=== PATIENT | male | born 1935 | race Caucasian/White ===

== ENCOUNTER → 2016-11-29 | Outpatient (CLI) | payer OTHER, BC ==
[~2016-11-29] MED LIST: ASPI81TA28 PO; ATOR-24 PO; BROM0.07 OPR; CARV25TA PO; CHOL20009 PO; CLOP1TAB15 PO; CPR500 PO; CRG25 PO; CYAN100T6 PO; DIGO0.1219 PO; DIGO0.122 PO; EXLP46 TOP; INSDGI SC; LISI40TA PO; LSN40 PO; MEMA1CAP3 PO; MTR500 PO; PANT40TA PO; PRED1SUS OPR
--- NOTE | 2016-11-29 12:35 | DIAGNOSTIC IMAGING REPORT ---
ULTRASOUND OF THE CAROTID ARTERIES CLINICAL HISTORY: Carotid artery atherosclerosis. COMPARISON STUDY: Carotid artery ultrasound dated 11/29/2015. TECHNIQUE: Real-time, grayscale, and color Doppler sonography of the carotid arteries is performed. Images are reviewed in the transverse and longitudinal planes. FINDINGS: Blood pressure in the right arm measures 129/65 and blood pressure in the left arm measures 131/64. The carotid arteries are patent bilaterally and demonstrate antegrade flow. There is mild to moderate echogenic shadowing atherosclerotic plaque seen bilaterally. Normal doppler arterial waveforms are seen throughout. Velocity measurements are listed below. Common carotid peak systolic velocity (cm/sec): RIGHT: 67 LEFT: 76 ICA proximal peak systolic velocity (cm/sec): RIGHT: 57 LEFT: 85 ICA mid peak systolic velocity (cm/sec): RIGHT: 74 LEFT: 72 ICA distal peak systolic velocity (cm/sec): RIGHT: 82 LEFT: 71 ICA/CC peak systolic ratio: RIGHT: 1.2 LEFT: 1.1 Antegrade flow was shown in the vertebral arteries. The external carotid arteries are patent. Elevated velocities within the left external carotid artery suggests some degree of stenosis. IMPRESSION: 1. Atherosclerotic plaque with no sonographic evidence of hemodynamically significant stenosis in the right or left carotid arterial system. 2. Antegrade flow is shown in the vertebral arteries. 3. Elevated velocities within the left external carotid artery suggests some degree of stenosis. Electronically signed by: Percy Salgado M.D. 11/29/2016 12:33 PM Dictated Date/Time: 11/29/2016 12:08 PM
== END | disposition home or self-care (01) ==
LOC: C.ULTRBC 10:58
PROVIDERS: ATTEND Surgery
DX: I66.29 Occlusion and stenosis of unspecified posterior cerebral artery (principal); I25.10 Atherosclerotic heart disease of native coronary artery without angina pectoris; I65.03 Occlusion and stenosis of bilateral vertebral arteries

== ENCOUNTER → 2016-12-15 | Outpatient (CLI) | payer OTHER, BC ==
[2016-12-15 17:29] LABS: BASO % 0.5 %; BASO ABS # 0.03 K/uL (0-0.2); COMPLETE YES; EOS % 3.4 %; HEMATOCRIT 38.2 % (42-52); IG% 0.2 %; LYMPH % 24.2 %; LYMPH ABS # 1.35 K/uL (1.2-3.4); MEAN CELL VOLUME 85.5 fL (80-100); MEAN CORPUSCULAR HGB CONC 35.1 g/dl (32-36); MEAN PLATELET VOLUME 11.6 fL (7.4-10.4); NEUT % 64.7 %; PLATELET COUNT 177 K/uL (130-400); RED BLOOD COUNT 4.47 M/uL (4.7-6.1); WHITE BLOOD COUNT 5.59 K/uL (4.8-10.8)
[2016-12-15 17:45] LABS: BLOOD UREA NITROGEN 24 mg/dl (7-18); BUN/CREATININE RATIO 17.2 (10-20); CALCIUM 9.1 mg/dl (8.5-10.1); CARBON DIOXIDE 29 mmol/L (21-32); CHLORIDE 102 mmol/L (98-107); GLUCOSE 202 mg/dl (70-99); POTASSIUM 5.2 mmol/L (3.5-5.1); SODIUM 138 mmol/L (136-145)
[2016-12-15 17:58] LABS: CHOLESTEROL 94 mg/dl (0-200); CHOLESTEROL/HDL RATIO 3.2; HDL CHOLESTEROL 29 mg/dl; LDL CHOLESTEROL CALCULATED 25 mg/dl; TRIGLYCERIDES 198 mg/dl (0-150); VERY LOW DENSITY LIPOPROT CALC 40 mg/dl
[2016-12-16 06:35] LABS: ESTIMATED AVERAGE GLUCOSE 169 mg/dl; HA1C FLAG Normal (Normal)
== END | disposition home or self-care (01) ==
LOC: C.LABPBG 12:21
PROVIDERS: ATTEND Internal Medicine Geriatric Medicine
DX: D64.9 Anemia, unspecified (principal); E11.29 Type 2 diabetes mellitus with other diabetic kidney complication; I10 Essential (primary) hypertension; I25.5 Ischemic cardiomyopathy; M19.90 Unspecified osteoarthritis, unspecified site; E55.9 Vitamin D deficiency, unspecified

== ENCOUNTER 2016-12-29 11:42 | Inpatient (IN) | payer OTHER, BC ==
[~2016-12-29] VITALS: Ht 162.6 cm; Wt 62.3 kg
[~2016-12-29 11:42] MED LIST changes: -CARV25TA PO; -CPR500 PO; -DIGO0.1219 PO; -LISI40TA PO; -MTR500 PO
[2016-12-29] MEDS ORDERED: SODIUM CHLORIDE 0.9% 1000ML 1,000 ML IV STA (12:10)
[2016-12-29 12:12] LABS: HEMATOCRIT 40.1 % (42-52); MEAN CORPUSCULAR HEMOGLOBIN 29.9 pg (25-34); MEAN CORPUSCULAR HGB CONC 35.2 g/dl (32-36); MEAN PLATELET VOLUME 11.5 fL (7.4-10.4); PLATELET COUNT 148 K/uL (130-400); RED BLOOD COUNT 4.72 M/uL (4.7-6.1); WHITE BLOOD COUNT 6.98 K/uL (4.8-10.8)
--- NOTE | 2016-12-29 12:14 | EMERGENCY ROOM VISIT NOTE ---
History Report prepared by Oswaldo: Berenice Lynn Under the Supervision of: Dr. Dawson Pelletier M.D. First contact with patient: 11:58 Chief Complaint: DIZZY Stated Complaint: DIZZNESS/ DIAPHORETIC/NECK PAIN Nursing Triage Summary: Pt arrives via ALS litter. Per medic, pt was at a restaurant eating breakfast, "felt ill", went to the restroom and had a BM. When EMS arrived pt was reported to be pale, diaphoretic and leaning to the right. Pt c/o posterior neck pain. EMS reports initial bp was 80/palp. Pt reportedly answering questions per his norm, hx of dementia. History of Present Illness The patient is an 81 year old male who presents to the Emergency Room with complaints of sudden dizziness that overcame him this morning. The patient states that he went with his family to a restaurant and when he went to leave he became dizzy upon standing. He states that he walked a few feet, but felt that he could not go anymore. Per the patient's , the patient had to be carried to the bathroom because he couldn't ambulate on his own. She states that she could feel that the patient was diaphoretic, but the patient states that he felt cold. The patient denies any weakness in any extremity or difficulty speaking. The patient's states that the patient was disoriented and was not speaking during the event. The patient notes a history of a quadruple bypass several years ago and states that he has had several stents placed. 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 The patient reports normal urination and bowel movements. The patient's states that for the last several years he has been taking Digoxin, Plavix, and aspirin daily since his [place]. She denies the patient having any recent changes in his medications. The patient's states that the patient has had a decrease in appetite over the last week, noting that he has not eaten very much recently. Nursing staff notes that the patient received 324 en-route to the emergency department. Source of History: patient, spouse/significant other (), nursing staff Onset: this morning Position: other (global) Quality: other (dizziness) Timing: other (sudden) Modifying Factors (Worsening): other (standing) Associated Symptoms: + diaphoresis, No weakness Note: Associated Symptoms: felt cold, decrease in appetite, disoriented, not speaking Review of Systems 10 systems reviewed and negative. Past Medical & Surgical Medical Problems: (1) Alzheimer's dementia (2) Anemia (3) Aortocoronary bypass status (4) Atherosclerosis (5) Dementia (6) Diabetes mellitus (7) Diverticulosis of colon without hemorrhage (8) Esophageal reflux (9) Hx of prostatic malignancy (10) Hypertension (11) Knee joint replacement status Surgical Problems: (1) S/P cholecystectomy Family History Cancer Diabetes mellitus Gallbladder disease Heart disease Hypertension Social History Smoking Status: Never Smoker Smokeless Tobacco Use: No Alcohol Use: none Marital Status: Housing Status: lives with significant other Occupation Status: retired Current/Historical Medications Scheduled Aspirin (Aspirin Ec), 81 MG PO QAM Atorvastatin (Lipitor), 40 MG PO QPM Carvedilol (Coreg), 25 MG PO BID Clopidogrel (Plavix), 75 MG PO QAM Cyanocobalamin (Vitamin B12 100 Mcg), 100 MCG PO QAM Digoxin (Digox), 125 MCG PO DAILY Insulin Glargine (Lantus), 40 UNITS SC HS Lisinopril (Zestril), 40 MG PO DAILY Memantine Hcl (Namenda Xr), 1 CAP PO HS Pantoprazole (Protonix), 40 MG PO QAM Rivastigmine Tartrate (Exelon), 13.3 MG TOP HS Allergies Coded Allergies: Atenolol (Unverified Allergy, Intermediate, UNKNOWN, 12/29/16) Donepezil (Unverified Allergy, Intermediate, GI UPSET, 12/29/16) Fenofibrate (Unverified Allergy, Intermediate, UNKNOWN, 12/29/16) Hydrochlorothiazide (Unverified Allergy, Intermediate, UNKNOWN, 12/29/16) Indomethacin (Unverified Allergy, Intermediate, UNKNOWN, 12/29/16) Niacin (Unverified Allergy, Intermediate, UNKNOWN, 12/29/16) Latex (Verified Allergy, Mild, Skin Irritation, 12/29/16) Adhesives (Unverified Allergy, Unknown, red sore skin from tape, 12/29/16) NSAIDs (Verified Allergy, Unknown, QUESTIONABLE ALLERGY TO INDOCIN, ) "CAUSES HIM TO BE NERVOUS/SHAKY" Physical Exam Vital Signs Date Time Temp Pulse Resp B/P Pulse Ox O2 Delivery O2 Flow Rate FiO2 2/10/17 14:36 51 16 185/69 100 12/29/16 13:25 54 18 160/68 100 Room Air 12/29/16 12:22 45 113/59 50 115/49 12/29/16 12:14 100 Room Air 12/29/16 12:04 62 12/29/16 11:52 36.5 56 18 147/53 100 Room Air Physical Exam GENERAL: Patient awake, alert, oriented x 3. Patient follows commands. Patient does not appear toxic. Patient is adequately hydrated and well- nourished. SKIN: No erythema, pallor, cyanosis or rash HEENT: Normal head, pupils equal, reactive to light and accommodation. Oral cavity and posterior pharynx appear normal. Neck: Without adenopathy, no neck vein distention. CHEST WALL: Well healed midline sternotomy scar. LUNGS: Clear to auscultation. No wheezes, no rales, no rhonchi. HEART: Bradycardic rhythm. No murmurs. No gallops. No rubs ABDOMEN: No masses, no rebound, no hepatomegaly or splenomegaly. RECTAL: No external hemorrhoids seen. EXTREMITIES: No signs of trauma. No pedal or pretibial edema. No calf or thigh tenderness. NEUROLOGIC: Cranial nerves II-XII within normal limits. No gross motor sensory function deficits. Medical Decision & Procedures ER Provider Diagnostic Interpretation: X ray results are stated below per my interpretation and the radiologist's interpretation. CHEST ONE VIEW PORTABLE CLINICAL HISTORY: near syncope DIZZINESS COMPARISON STUDY: 12/03/2015 FINDINGS: There are postsurgical changes of a midline sternotomy. The cardiac and mediastinal contours remain stable. There is no focal pulmonary consolidation. There is no failure. There are no pleural effusions. There are bilateral calcified pleural plaques. IMPRESSION: Bilateral calcified pleural plaques left greater than right. No active disease in the chest. Electronically signed by: Ivan Dias M.D. 12/29/2016 12:43 PM Dictated Date/Time: 12/29/2016 12:41 PM Laboratory Results 12/29/16 15:04 12/29/16 11:45 Test 12/29/16 11:45 12/29/16 13:26 12/29/16 15:04 Anion Gap 8.0 mmol/L (3-11) Est Creatinine Clear Calc Drug Dose 27.0 ml/min Estimated GFR () 40.0 Estimated GFR (Non- 34.5 BUN/Creatinine Ratio 17.7 (10-20) Calcium Level 9.4 mg/dl (8.5-10.1) Digoxin Level 1.6 ng/ml (0.8-2.0) Bedside Troponin I 0.000 ng/ml (0-0.045) Red Blood Count 4.52 M/uL (4.7-6.1) Mean Corpuscular Volume 85.2 fL (80-100) Mean Corpuscular Hemoglobin 30.1 pg (25-34) Mean Corpuscular Hemoglobin Concent 35.3 g/dl (32-36) RDW Standard Deviation 41.6 fL (36.4-46.3) RDW Coefficient of Variation 13.5 % (11.5-14.5) Mean Platelet Volume 10.9 fL (7.4-10.4) Laboratory results as stated above per my review. Medications Administered Medications (Trade) Dose Ordered Sig/Ashley Route Start Time Stop Time Status Last Admin Dose Admin Sodium Chloride (Nss 1000ml) 1,000 ml @ 500 mls/hr Q2H STAT IV 12/29/16 12:10 12/29/16 14:09 DC 12/29/16 12:21 500 MLS/HR ECG Rate (beats per minute): 48 Rhythm: sinus bradycardia Findings: 1st degree AV block, LBBB, other (Flipped T waves in lead 1, and AVL) ED Course 1159: Past medical records reviewed. The patient was evaluated in room A2. A complete history and physical examination was performed. 1210: Ordered Sodium Chloride 1000 ml @ 500 mls/hr IV. 1334: I reevaluated the patient and he is feeling much better. He is now experiencing diarrhea. 1457: I reevaluated the patient and he is having diarrhea stool and significant amounts of maroon blood. I discussed all the exam findings with him and I discussed the treatment plan. He and his family verbalized complete understanding and agreement. The patient will be evaluated for further treatment. 1515: I discussed the patients case with MALCOLM Carreon. He is going to evaluate the patient for further treatment. Medical Decision I considered multiple diagnoses including myocardial infarction, chest wall pain , pericarditis, myocarditis, aortic emergencies, pulmonary embolism, congestive heart failure, GI causes, digitoxicity, medication reaction, hypovolemia, and other significant cardiopulmonary disorders. Multiple labs, EKG and imaging were obtained. Please see above. The patient had some diarrhea earlier today while here in the ED he had a large amount of blood in his stool. The patient has no hemorrhoids. I believe his GI bleed is the cause for his near syncope earlier today. The patient was given IV fluids. I discussed care with the patient, his multiple family members and the hospitalist. The patient will require further evaluation in the hospital. Consults Time Called: 1500 Consulting Physician: MALCOLM Carreon Returned Call: [phone] I discussed the patients case with MALCOLM Carreon. He is going to evaluate the patient for further treatment. Impression Primary Impression: Rectal bleeding Additional Impressions: Near syncope Diarrhea Hyperkalemia Scribe Attestation The scribe's documentation has been prepared under my direction and personally reviewed by me in its entirety. I confirm that the note above accurately reflects all work, treatment, procedures, and medical decision making performed by me. Departure Information Dispostion Being Evaluated By Hospitalist Referrals Jay Jay Tejada M.D. (PCP) Problem Qualifiers
[2016-12-29 12:23] LABS: BUN/CREATININE RATIO 17.7 (10-20); CALCIUM 9.4 mg/dl (8.5-10.1); CREATININE 1.8 mg/dl (0.60-1.40); POTASSIUM 5.3 mmol/L (3.5-5.1)
--- NOTE | 2016-12-29 12:44 | DIAGNOSTIC IMAGING REPORT ---
CHEST ONE VIEW PORTABLE CLINICAL HISTORY: near syncope DIZZINESS COMPARISON STUDY: 12/03/2015 FINDINGS: There are postsurgical changes of a midline sternotomy. The cardiac and mediastinal contours remain stable. There is no focal pulmonary consolidation. There is no failure. There are no pleural effusions. There are bilateral calcified pleural plaques. IMPRESSION: Bilateral calcified pleural plaques left greater than right. No active disease in the chest. Electronically signed by: Ivan Dias M.D. 12/29/2016 12:43 PM Dictated Date/Time: 12/29/2016 12:41 PM
[2016-12-29] MEDS ORDERED: LISI40TA PO (13:02)
[2016-12-29] MEDS ORDERED: INSDGI SC (13:02)
[2016-12-29] MEDS ORDERED: CARV25TA PO (13:02)
[2016-12-29] MEDS ORDERED: DIGO0.1219 PO (13:02)
[2016-12-29 15:16] LABS: HEMATOCRIT 38.5 % (42-52); MEAN CELL VOLUME 85.2 fL (80-100); MEAN CORPUSCULAR HEMOGLOBIN 30.1 pg (25-34); MEAN CORPUSCULAR HGB CONC 35.3 g/dl (32-36); MEAN PLATELET VOLUME 10.9 fL (7.4-10.4); PLATELET COUNT 135 K/uL (130-400); RED BLOOD COUNT 4.52 M/uL (4.7-6.1); WHITE BLOOD COUNT 9.35 K/uL (4.8-10.8)
[2016-12-29] MEDS ORDERED: INSULIN ASPART 100 UNITS/ML 3 ML PEN SC SCH (16:00)
[2016-12-29] MEDS ORDERED: HydrALAZINE HCL 20 MG/ML VIAL IV. PRN (16:00)
[2016-12-29] MEDS ORDERED: ONDANSETRON INJ 2 MG/ML 2 ML VIAL IV PRN (16:00)
[2016-12-29] MEDS ORDERED: DEXTROSE 50% 50 ML SYR IV PRN (16:45)
[2016-12-29] MEDS ORDERED: GLUCOSE 40% GEL 15 GM TUBE PO PRN (16:45)
[2016-12-29] MEDS ORDERED: GLUCOSE 10 TABS/TUBE PO PRN (16:45)
[2016-12-29] MEDS ORDERED: GLUCAGON FOR INJ 1 MG VIAL SQ PRN (16:45)
--- NOTE | 2016-12-29 18:31 | HISTORY & PHYSICAL EXAMINATION ---
DATE OF ADMISSION: 12/29/2016 CHIEF COMPLAINT: Dizziness. HISTORY OF PRESENT ILLNESS: An 81-year-old male who presents to Emergency Room with dizziness that started this morning. The patient states that he went to the restaurant and then when he was leaving, he became dizzy upon standing. He stated he walked few feet and he could not walk anymore. Per patient's who is present at bedside, mentioned that he had to be carried to the bathroom because he could not ambulate on his own. Also stated that he looked like he was diaphoretic. The patient denies any weakness in his extremities, difficulty speaking. The patient's also mentioned that he was disoriented. The patient's mentioned that he had decrease in his appetite over the last week and he has not eaten very much. So nursing staff also reported patient received 324 mg of aspirin en route to the Emergency Room. ER physician reported to me that he just had jack blood in his stool and patient has history of no hemorrhoids. REVIEW OF SYSTEMS: Negative except as above. Ten out of 14 systems were reviewed. PAST MEDICAL HISTORY: Significant for Alzheimer dementia, anemia, aortocoronary bypass surgery, quadruple bypass back in 2000, atherosclerosis, dementia, diabetes mellitus type 2, diverticulosis, esophageal reflux, history of prostatic malignancy, hypertension, knee joint replacement, status post cholecystectomy. FAMILY HISTORY: Cancer, diabetes, gallbladder disease, heart disease, hypertension. SOCIAL HISTORY: Does not smoke, does not drink, , lives with significant other, retired. ALLERGIES: HE IS ALLERGIC TO ADHESIVES, ATENOLOL, DONEPEZIL, FENOFIBRATE, HYDROCHLOROTHIAZIDE, INDOMETHACIN, LATEX, NSAID'S, NIACIN. CURRENT MEDICATIONS: Aspirin 81 mg p.o. daily, atorvastatin 40 mg p.o. at bedtime, carvedilol 25 mg p.o. b.i.d., Plavix 75 mg p.o. daily, cyanocobalamin 100 mcg p.o. daily, digoxin 125 mcg p.o. daily, insulin glargine 40 units subcutaneously daily, lisinopril 40 mg p.o. daily, memantine 1 capsule p.o. at bedtime, pantoprazole 40 mg p.o. daily, rivastigmine 13.3 mg topical at bedtime. PHYSICAL EXAMINATION: VITAL SIGNS: Temperature 36.5, pulse 51, respirations 16, blood pressure 185/69, 100% on room air. GENERAL: Not in acute distress. HEENT: Normocephalic, atraumatic. PERRLA, EOMI. Mouth moist, no lesions. NECK: No JVD. Trachea midline. Thyroid is not enlarged. LUNGS: Clear to auscultation bilateral. No wheezes, no rhonchi. HEART: Bradycardia. No murmurs, no gallops. ABDOMEN: Soft, nontender, nondistended. Bowel sounds present bilateral. CHEST WALL: A well-healed midline sternotomy scar. RECTAL: Was performed by ER physician, showed no external hemorrhoids. EXTREMITIES: No clubbing, cyanosis, edema. NEUROLOGICAL: Alert, oriented x3. Cranial nerves II-XII are intact. Motor sensory normal. Deep tendon reflexes 2+ bilateral. DIAGNOSTIC INTERPRETATION: Chest x-ray: Bilateral calcified pleural plaques, left greater than right. No active disease in the chest. LABS: White count of 9.3, hemoglobin of 13.6, platelets 135. Sodium 137, potassium 5.3, chloride 102, CO2 27, BUN of 32, creatinine 1.8, glucose of 274. Digoxin level 1.6, calcium 9.4. Troponin 0.0. EK beats per minute, sinus bradycardia, first degree AV block, left bundle branch block that is unchanged and flipped T waves in leads I and aVL. ASSESSMENT AND PLAN: This is an 81-year-old male who comes in with dizziness and lower gastrointestinal bleed. 1. Lower gastrointestinal bleed. Differential diagnosis would include arteriovenous malformation, cancer, diverticulosis, and no hemorrhoids on exam. Admit patient to general medical floor, H&H every 6-8 hours. Start patient on pantoprazole IV b.i.d. and hold aspirin and Plavix. Consult GI. Keep patient n.p.o. except meds. 2. Uncontrolled hypertension. We will continue on outpatient carvedilol and add hydralazine as needed for systolic blood pressure above 150 mmhg. We are holding lisinopril because of acute renal failure. 3. Acute renal failure with baseline creatinine of 1.3 and currently with creatinine 1.8 in the setting of potassium 5.3, likely related to dehydration. Start patient on normal saline 80 mL per hour and monitor creatinine. Hold lisinopril. 4. History of type 2 diabetes, on insulin. Check hemoglobin A1c. Since patient is on 40 units of Lantus and is going to be n.p.o., we will decrease it to 20 units at bedtime. We will start insulin sliding scale and Accu-Cheks a.c. plus at bedtime. 5. History of cardiac arrhythmia and quadruple coronary bypass surgery. We will hold aspirin, Plavix. We will continue digoxin, carvedilol and Lipitor. 6. Alzheimer dementia. Restart Namenda and Exelon when patient can take oral medicines. 7. Deep venous thrombosis prophylaxis with SCDs. The patient is a full code. Time spent on doing this admission is 50 minutes. ROBERT
[2016-12-29] MEDS: SODIUM CHLORIDE 0.9% 1000ML 1,000 ML IV SCH (19:31)
[2016-12-29] MEDS ORDERED: NURSING VERBAL MED ORDER ONE ×2 (20:00→20:15)
[2016-12-29] MEDS: INSULIN GLARGINE SOLOSTAR 100 UNITS/ML 3 ML PEN SC SCH (21:00)
[2016-12-29] MEDS ORDERED: INSULIN GLARGINE SOLOSTAR 100 UNITS/ML 3 ML PEN SC SCH (21:00)
[2016-12-29] MEDS: RIVASTIGMINE REMOVE SCH (21:39)
[2016-12-29] MEDS: PANTOprazole INJ 40 MG in SYRINGE 0 ML IV SCH (21:39)
[2016-12-29] MEDS: MEMANTINE HCL 14 MG PO SCH (21:39)
[2016-12-29] MEDS: RIVASTIGMINE 13.3 MG PATCH TD SCH (21:40)
[2016-12-29] MEDS: ATORVASTATIN 40 MG TAB PO SCH (21:41)
[2016-12-29] MEDS: CARVEDILOL 25 MG TAB PO SCH (21:42)
[2016-12-29 22:09] LABS: HEMATOCRIT 38.6 % (42-52)
[2016-12-29 23:32] VITALS: BP_SYST 158; BP_SYST 160; BP_DIAS 56; BP_DIAS 81; PULSE 54; PULSE 55; TEMP 36.5; TEMP 37; O2SAT 97; Ht 162.6 cm; Wt 62.3 kg
[2016-12-29] MEDS: INSULIN ASPART 100 UNITS/ML 3 ML PEN SC SCH (23:59)
[2016-12-30] VITALS (9 sets, daily range): BP systolic 122–154; BP diastolic 66–78; PULSE 51–62; TEMP 36.8–37.1; O2SAT 96–98
[2016-12-30] MEDS: SODIUM CHLORIDE 0.9% 1000ML 1,000 ML IV SCH ×2 (05:20→17:55)
[2016-12-30] MEDS: INSULIN ASPART 100 UNITS/ML 3 ML PEN SC SCH ×4 (05:28→21:38)
[2016-12-30 06:31] LABS: ESTIMATED AVERAGE GLUCOSE 171 mg/dl; HA1C FLAG Normal (Normal)
[2016-12-30 08:05] LABS: BASO % 0.2 %; BASO ABS # 0.02 K/uL (0-0.2); COMPLETE YES; EOS % 1.8 %; HEMATOCRIT 36.8 % (42-52); IG% 0.2 %; LYMPH % 16.9 %; LYMPH ABS # 1.54 K/uL (1.2-3.4); MEAN CELL VOLUME 84.8 fL (80-100); MEAN CORPUSCULAR HEMOGLOBIN 29.7 pg (25-34); MEAN CORPUSCULAR HGB CONC 35.1 g/dl (32-36); MEAN PLATELET VOLUME 11.1 fL (7.4-10.4); NEUT % 74.9 %; PLATELET COUNT 147 K/uL (130-400); RED BLOOD COUNT 4.34 M/uL (4.7-6.1); WHITE BLOOD COUNT 9.11 K/uL (4.8-10.8)
--- NOTE | 2016-12-30 08:24 | Progress Note ---
Subjective Date of Service: Dec 30, 2016. Subjective pt did have what sounds like a vagal event at the onset, still with bloody bowel movements, GI medicine has ordered CT scan and is considering Colonoscopy , no further recurrences of syncope issues Problem List Medical Problems: (1) Diarrhea Status: Acute (2) Hyperkalemia Status: Acute (3) Near syncope Status: Acute (4) Rectal bleeding Status: Acute Review of Systems Constitutional: No chills, No fever Respiratory: No cough, No wheezing Cardiac: No chest pain, No edema Abdomen: + GI bleeding, No nausea, No pain, No vomiting Male : No dysuria, No urinary frequency Psychiatric: No anhedonism, No depression symptoms Objective Vital Signs Date Time Temp Pulse Resp B/P Pulse Ox O2 Delivery O2 Flow Rate FiO2 12/30/16 07:45 36.9 62 16 122/66 97 Room Air 12/30/16 07:20 97 Room Air 12/30/16 07:11 36.8 56 18 147/75 97 Room Air 12/30/16 00:00 Room Air 12/29/16 23:32 36.5 55 18 160/81 97 Room Air 12/29/16 23:32 37.0 54 18 158/56 97 Room Air 12/29/16 18:43 53 17 193/81 99 12/29/16 18:15 53 17 193/81 99 Room Air 12/29/16 17:44 48 18 176/83 99 Room Air 12/29/16 17:23 51 18 198/84 98 Room Air 12/29/16 14:36 51 16 185/69 100 12/29/16 13:25 54 18 160/68 100 Room Air 12/29/16 12:22 45 113/59 50 115/49 12/29/16 12:14 100 Room Air 12/29/16 12:04 62 12/29/16 11:52 36.5 56 18 147/53 100 Room Air Physical Exam General Appearance: WD/WN, + mild distress Neck: supple, no JVD Respiratory/Chest: chest non-tender, lungs clear, no accessory muscle use Cardiovascular: regular rate, rhythm, no edema, + systolic murmur Abdomen: normal bowel sounds, soft, + tenderness (diffusely) Neurologic/Psychiatric: alert, oriented x 3 Laboratory Results Last 24 Hours Test 12/29/16 11:45 12/29/16 13:26 12/29/16 15:04 12/29/16 21:30 White Blood Count 6.98 K/uL 9.35 K/uL Red Blood Count 4.72 M/uL 4.52 M/uL Hemoglobin 14.1 g/dL 13.6 g/dL 13.7 g/dL Hematocrit 40.1 % 38.5 % 38.6 % Mean Corpuscular Volume 85.0 fL 85.2 fL Mean Corpuscular Hemoglobin 29.9 pg 30.1 pg Mean Corpuscular Hemoglobin Concent 35.2 g/dl 35.3 g/dl RDW Standard Deviation 41.6 fL 41.6 fL RDW Coefficient of Variation 13.6 % 13.5 % Platelet Count 148 K/uL 135 K/uL Mean Platelet Volume 11.5 fL 10.9 fL Sodium Level 137 mmol/L Potassium Level 5.3 mmol/L Chloride Level 102 mmol/L Carbon Dioxide Level 27 mmol/L Anion Gap 8.0 mmol/L Blood Urea Nitrogen 32 mg/dl Creatinine 1.80 mg/dl Est Creatinine Clear Calc Drug Dose 27.0 ml/min Estimated GFR () 40.0 Estimated GFR (Non- 34.5 BUN/Creatinine Ratio 17.7 Random Glucose 274 mg/dl Calcium Level 9.4 mg/dl Digoxin Level 1.6 ng/ml Bedside Troponin I 0.000 ng/ml Estimated Average Glucose 171 mg/dl Hemoglobin A1c 7.6 % Test 12/29/16 23:43 12/30/16 07:35 Bedside Glucose 160 mg/dl White Blood Count 9.11 K/uL Red Blood Count 4.34 M/uL Hemoglobin 12.9 g/dL Hematocrit 36.8 % Mean Corpuscular Volume 84.8 fL Mean Corpuscular Hemoglobin 29.7 pg Mean Corpuscular Hemoglobin Concent 35.1 g/dl Platelet Count 147 K/uL Mean Platelet Volume 11.1 fL Neutrophils (%) (Auto) 74.9 % Lymphocytes (%) (Auto) 16.9 % Monocytes (%) (Auto) 6.0 % Eosinophils (%) (Auto) 1.8 % Basophils (%) (Auto) 0.2 % Neutrophils # (Auto) 6.82 K/uL Lymphocytes # (Auto) 1.54 K/uL Monocytes # (Auto) 0.55 K/uL Eosinophils # (Auto) 0.16 K/uL Basophils # (Auto) 0.02 K/uL RDW Standard Deviation 41.1 fL RDW Coefficient of Variation 13.4 % Immature Granulocyte % (Auto) 0.2 % Immature Granulocyte # (Auto) 0.02 K/uL Assessment and Plan 81-M with lower gastrointestinal bleed, and dizziness Lower gastrointestinal bleed. Serial HGB pantoprazole IV b.i.d. and hold aspirin and Plavix. Consult GI is considering colonoscopy. CT with left sided colitis, will check cultures Uncontrolled hypertension. carvedilol and prn hydralazine held lisinopril due to acute renal failure. Acute renal failure hydration and monitor . Type 2 diabetes, on insulin. 1/2 dose typical lantus and use insulin sliding scale CAD Aib, hold aspirin, Plavix. Continue digoxin, due to bradycardia, reduce carvedilol dose Alzheimer dementia. restart Namenda and Exelon Deep venous thrombosis prophylaxis with SCDs. The patient is a full code.
[2016-12-30] MEDS ORDERED: LISINOPRIL 40 MG TAB PO SCH (09:00)
[2016-12-30 09:07] LABS: CREATININE 1.3 mg/dl (0.60-1.40)
[2016-12-30 09:08] LABS: BUN/CREATININE RATIO 20.8 (10-20); CALCIUM 8.6 mg/dl (8.5-10.1); POTASSIUM 3.9 mmol/L (3.5-5.1)
[2016-12-30] MEDS: PANTOprazole INJ 40 MG in SYRINGE 0 ML IV SCH ×2 (09:45→21:34)
[2016-12-30] MEDS: CARVEDILOL 25 MG TAB PO SCH (09:46)
[2016-12-30] MEDS: CYANOCOBALAMIN 100 MCG TAB (VIT B-12) PO SCH (09:46)
[2016-12-30] MEDS ORDERED: OPTIRAY 320 IV PRN (12:15)
--- NOTE | 2016-12-30 14:00 | GASTROINTESTINAL CONSULTATION ---
DATE OF CONSULTATION: 12/30/2016 AGE: 81. SEX: Male. RACE: . ATTENDING PHYSICIAN: Dr. Lombardi. CONSULTING PHYSICIAN: Dr. Burns. REASON FOR CONSULTATION: Bright red blood per rectum. HISTORY OF PRESENT ILLNESS: Micheal Astudillo is an 81-year-old male, who presented to the Department of Emergency Medicine on 12/29/2016 with dizziness. He was at a breakfast and became lightheaded, dizzy and had an episode of diarrhea, which was noted to have blood in it. He does have a history of coronary artery disease and is on aspirin and Plavix therapy at home. Upon arrival to the Department of Emergency Medicine, he was noted to have an H\T\H of 14.1 and 40.1 and a BUN of 32 with a creatinine of 1.8. He has undergone an upper endoscopy as well as a colonoscopy as recently as 05/28/[address] Gannon. His EGD was unremarkable. His colonoscopy did show diverticulosis, but no other significant findings were noted. He states that over the past year to year and a half he has lost approximately 20 pounds, but states that he has not had persistent bright red rectal bleeding and states that this is a new symptom for him. He was admitted and was treated with IV fluids. A repeat hemoglobin was noted to decrease to 12.9. He has had 2 bowel movements this morning, which were soft and liquid in nature, semisolid and he did note blood in his stool. He denies any abdominal pain, fevers, chills, nausea, vomiting, hematemesis or melena. He further denies any rectal pain and has no further complaints. PAST MEDICAL HISTORY: Significant for coronary artery disease, anemia, Alzheimer's dementia, type 2 diabetes mellitus, diverticulosis, GERD, history of prostate cancer, hypertension. PAST SURGICAL HISTORY: Includes bilateral total knee replacement, cholecystectomy, coronary artery bypass grafting. ALLERGIES: ADHESIVES, ATENOLOL, DONEPEZIL, FENOFIBRATE, HYDROCHLOROTHIAZIDE, INDOMETHACIN, LATEX, NSAIDS, NIACIN. MEDICATIONS AT PRESENT: Digoxin 0.125 mg p.o. daily, vitamin B12 100 mcg p.o. q.a.m., sliding scale insulin, Lipitor 40 mg p.o. q.p.m., carvedilol 25 mg p.o. b.i.d., Protonix 40 mg IV b.i.d., Lantus 8 units subQ at bedtime, Zofran 4 mg IV q. 6 p.r.n. nausea and hydralazine 10 mg IV q. 6 p.r.n. for systolic blood pressures greater than 150. SOCIAL HISTORY: He is accompanied by his . He denies any tobacco, alcohol or illicit drug use. FAMILY HISTORY: Negative for GI malignancy or inflammatory bowel disease. REVIEW OF SYSTEMS: Negative x10 system review other than pertinent positives listed in the HPI. PHYSICAL EXAMINATION: VITAL SIGNS: Include a temp of 36.9, pulse 62, respirations 16, blood pressure 145/66, pulse ox 97% on room air. GENERAL: He is awake, cooperative, in no acute distress. HEAD: Normocephalic, atraumatic. EYES: Pupils equally round. Extraocular muscles are intact. ENT: External evaluation of ears and nose are normal. Oropharynx is clear. NECK: Soft and supple. There is no JVD or lymphadenopathy. CHEST: Clear to auscultation bilaterally. CARDIOVASCULAR SYSTEM: Regular rate and rhythm. ABDOMEN: Soft, nontender, nondistended. Positive bowel sounds. There is no hepatosplenomegaly or stigmata of chronic liver disease. EXTREMITIES: No clubbing, cyanosis, or edema. LABORATORY STUDIES: From today include a hemoglobin of 12.9, hematocrit 36.8, platelet count of 147. A white blood cell count of 9.11, a sodium of 140, potassium 3.9, chloride 106, bicarbonate 25, BUN 27, creatinine 1.3 and a blood glucose level of 158. Chest x-ray in the ER showed bilateral calcified pleural plaques, left greater than right, but no active disease in the chest. IMPRESSION: An 81-year-old male with acute blood loss anemia with rectal bleeding. PLAN: Differential diagnosis in this patient with painless bright red blood per rectum includes diverticular bleeding versus hemorrhoids versus AVM versus colon cancer, which is less likely versus brisk upper GI bleed, which again is less likely. His plan at present would be to continue him on Protonix 40 mg IV b.i.d. I would recommend checking a CT scan of his abdomen and pelvis as ischemic colitis can present in this way as well though usually with abdominal pain though his history of vascular disease would increase his risk for this. I would recommend treating him supportively. I would transfuse him to maintain his H\T\H around 10 and 30 and I will make further recommendations in regards to endoscopic workup in the coming days. I will follow his clinical course and make further recommendations.
--- NOTE | 2016-12-30 14:47 | DIAGNOSTIC IMAGING REPORT ---
CT SCAN OF THE ABDOMEN AND PELVIS WITH IV CONTRAST CLINICAL HISTORY: Rectal bleeding. Anemia. COMPARISON STUDY: Abdominal CT dated 10/19/2006. TECHNIQUE: Following the IV administration of 115 cc of Optiray 320, CT scan of the abdomen and pelvis is performed from the lung bases to the proximal femora. Images are reviewed in the axial, sagittal, and coronal planes. IV contrast was administered without complication. Automated dose control exposure was utilized. CT DOSE: 265.36 mGy.cm FINDINGS: Lung bases: The patient is status post midline sternotomy. The heart is enlarged and without pericardial effusion. There are coronary artery calcifications. Calcified pleural plaque is present at the right lung base. No airspace consolidation or pleural effusion is identified. Liver: The contrast-enhanced liver is normal in size, contour, and attenuation. There is no intrahepatic biliary ductal dilatation. The hepatic veins and portal veins are patent. Gallbladder: Surgically absent noting clips in the gallbladder fossa. Spleen: Normal in size and attenuation. Pancreas: Moderately atrophic and grossly unremarkable. Adrenal glands: Unremarkable. Kidneys: The contrast enhanced kidneys are atrophic and without hydronephrosis. The kidneys enhance symmetrically. Abdominal vasculature: There is advanced atherosclerotic calcification and ectasia of the abdominal aorta. Bowel: The small bowel and colon are normal in course and caliber. There is a long segment of wall thickening and edema identified involving the left colon. This extends in the distal descending colon to the rectum. There is associated pericolonic infiltration. The appearance is typical for colitis. There is advanced sigmoid diverticulosis without clear as evidence of acute sigmoid diverticulitis. The appendix is well-visualized and normal. Peritoneum: There is a small volume of free fluid in the pelvis. No intraperitoneal free air is seen. There is a small fat-containing umbilical hernia. Lymphadenopathy: None. Pelvic viscera: Brachytherapy seeds are noted in the prostate gland. The bladder wall is thickened and trabeculated, likely representing the sequelae of chronic outlet obstruction. Skeletal structures: The skeletal structures are osteopenic. There are bilateral pars defects at L5 with grade 1 anterolisthesis at L5-S1. There is moderate lumbosacral spondylosis. No lytic or blastic lesions are seen. IMPRESSION: 1. Findings are consistent with a nonspecific colitis of the left colon. This could be on an infectious, inflammatory, or ischemic basis. Clinical correlation will be required. 2. There is advanced sigmoid diverticulosis without clear CT evidence of acute diverticulitis. 3. There is a small volume of free fluid in the pelvis, likely on a reactive basis. 4. Brachytherapy seeds are noted in the prostate gland. 5. The appearance of the bladder suggests the sequelae of chronic outlet obstruction. 6. Cardiomegaly. 7. Additional changes as above. Electronically signed by: Percy Salgado M.D. 12/30/2016 2:46 PM Dictated Date/Time: 12/30/2016 2:40 PM
[2016-12-30] MEDS: DIGOXIN 0.125 MG TAB PO SCH ×2 (16:00→18:23)
[2016-12-30] MEDS: RIVASTIGMINE REMOVE SCH (20:59)
[2016-12-30] MEDS: INSULIN GLARGINE SOLOSTAR 100 UNITS/ML 3 ML PEN SC SCH (21:00)
[2016-12-30] MEDS: CARVEDILOL 12.5 MG TAB PO SCH (21:00)
[2016-12-30] MEDS: ATORVASTATIN 40 MG TAB PO SCH (21:35)
[2016-12-30] MEDS: MEMANTINE HCL 14 MG PO SCH (21:36)
[2016-12-30] MEDS: RIVASTIGMINE 13.3 MG PATCH TD SCH (21:37)
[2016-12-31] MEDS ORDERED: NURSING DECISION MEDICATION ORDER SCH
[2016-12-31 02:24] VITALS: BP 148/61; PULSE 76
[2016-12-31] MEDS: SODIUM CHLORIDE 0.9% 1000ML 1,000 ML IV SCH (05:25)
[2016-12-31] MEDS: INSULIN ASPART 100 UNITS/ML 3 ML PEN SC SCH ×2 (06:30→11:58)
[2016-12-31 07:15] VITALS: O2SAT 98
[2016-12-31 08:22] VITALS: BP 153/57; PULSE 63; TEMP 36.8; O2SAT 96
[2016-12-31] MEDS: PANTOprazole INJ 40 MG in SYRINGE 0 ML IV SCH (08:48)
[2016-12-31] MEDS: CARVEDILOL 12.5 MG TAB PO SCH (08:48)
[2016-12-31 09:24] LABS: HEMATOCRIT 32.6 % (42-52); MEAN CORPUSCULAR HEMOGLOBIN 29.8 pg (25-34); MEAN CORPUSCULAR HGB CONC 35.9 g/dl (32-36); MEAN PLATELET VOLUME 10.9 fL (7.4-10.4); PLATELET COUNT 124 K/uL (130-400); RED BLOOD COUNT 3.93 M/uL (4.7-6.1); WHITE BLOOD COUNT 7.55 K/uL (4.8-10.8)
[2016-12-31] MEDS: CYANOCOBALAMIN 100 MCG TAB (VIT B-12) PO SCH (11:15)
--- NOTE | 2016-12-31 13:47 | PROGRESS NOTE ---
DATE: 12/31/2016 GASTROENTEROLOGY PROGRESS NOTE RACE: . SUBJECTIVE: I had the pleasure of seeing Micheal russ at his bedside today. He feels much improved. He has not had any ____
--- NOTE | 2016-12-31 13:53 | PROGRESS NOTE ---
DATE: 12/31/2016 GASTROENTEROLOGY PROGRESS NOTE RACE: . SUBJECTIVE: I had the pleasure of seeing Micheal Astudillo at his bedside today. He states that he is feeling much improved from yesterday. He states he has not had any bowel movements since early yesterday morning and has not had any hematemesis nor hematochezia. He denies any abdominal pain at present. He further denies any fevers, chills, nausea or vomiting and states that he has been tolerating p.o. intake. He denies any further complaints. PHYSICAL EXAMINATION: VITAL SIGNS: Includes temperature 36.8, pulse 63, respirations 18, blood pressure 153/57, pulse ox is 96% on room air. GENERAL: He is awake, cooperative in no acute distress. ABDOMEN: Soft, nontender, nondistended. Positive bowel sounds. There is no hepatosplenomegaly or stigmata of chronic liver disease. LABORATORY STUDIES: From today include a white blood cell count of 7.55, hemoglobin 11.7, platelet count 124. IMAGING DATA: His CT scan of the abdomen and pelvis yesterday showed nonspecific colitis of the left colon which could be on an infectious, inflammatory or ischemic basis. There was advanced sigmoid diverticulosis without CT evidence of acute diverticulitis. A small amount of free fluid in the pelvis, which was felt to be reactive. He does have brachytherapy seeds noted in the prostate gland and questionable chronic outlet obstruction of the bladder. IMPRESSION AND PLAN: This is an 81-year-old male who presented with acute blood loss anemia and rectal bleeding. The differential diagnosis in this patient's case remains ischemic versus infectious versus diverticular versus hemorrhoids versus AVM versus colon cancer versus radiation proctitis. At this time, I would recommend that the patient receive a 10-day course of Cipro and Flagyl therapy to prevent bacterial translocation across the GI mucosa which could result in a secondary infection and we will treat him for his ischemic colitis secondary to his history of heart disease as well as his history of what sounds like a vagal event. I did discuss this case in detail with Dr. Cisse of the hospitalist service who will plan on doing a colonoscopy in 6 weeks as an outpatient and will make further recommendations as needed. If he has any further problems or worsening symptoms, he was advised to contact our office immediately or present to the Department of Emergency Medicine. ROBERT
--- NOTE | 2016-12-31 14:31 | Progress Note ---
Subjective Date of Service: Dec 31, 2016. Subjective pt feels much better, is eager to eat, no further vagal episodes Problem List Medical Problems: (1) Diarrhea Status: Acute (2) Hyperkalemia Status: Acute (3) Near syncope Status: Acute (4) Rectal bleeding Status: Acute Review of Systems Constitutional: No chills, No fever, No weakness Respiratory: No cough, No shortness of breath Cardiac: No chest pain, No edema Abdomen: + problem reported (no further bloody bowel movements), No diarrhea, No nausea, No pain, No vomiting Musculoskeletal: No joint pain, No muscle pain Male : No dysuria, No urinary frequency Objective Vital Signs Date Time Temp Pulse Resp B/P Pulse Ox O2 Delivery O2 Flow Rate FiO2 12/31/16 08:22 36.8 63 18 153/57 96 Room Air 12/31/16 07:15 98 Room Air 12/31/16 02:24 76 148/61 12/31/16 00:00 Room Air 12/30/16 23:01 37.1 51 16 154/68 96 Room Air 12/30/16 18:23 57 12/30/16 16:33 98 Room Air 12/30/16 16:00 54 12/30/16 15:00 36.9 52 16 138/78 98 Room Air Physical Exam General Appearance: WD/WN, no apparent distress Neck: supple, no JVD Respiratory/Chest: chest non-tender, lungs clear, normal breath sounds Cardiovascular: regular rate, rhythm, no murmur Abdomen: normal bowel sounds, non tender, soft Extremities: no pedal edema, no calf tenderness Laboratory Results Last 24 Hours Test 12/30/16 17:44 12/30/16 20:34 12/31/16 05:32 12/31/16 07:56 Bedside Glucose 153 mg/dl 176 mg/dl 163 mg/dl White Blood Count 7.55 K/uL Red Blood Count 3.93 M/uL Hemoglobin 11.7 g/dL Hematocrit 32.6 % Mean Corpuscular Volume 83.0 fL Mean Corpuscular Hemoglobin 29.8 pg Mean Corpuscular Hemoglobin Concent 35.9 g/dl RDW Standard Deviation 40.3 fL RDW Coefficient of Variation 13.3 % Platelet Count 124 K/uL Mean Platelet Volume 10.9 fL Digoxin Level 0.9 ng/ml Test 12/31/16 11:38 Bedside Glucose 191 mg/dl Assessment and Plan 81-M with lower gastrointestinal bleed, and dizziness, may have been vagal episode and then some colonic ischemia or vica versa Lower gastrointestinal bleed. Serial HGB shows 2 gm drop with hydration hold aspirin and Plavix resume in one week Consult GI is considering colonoscopy as outpt in [address] with left sided colitis, pending stool cultures hypertension. carvedilol and prn hydralazine; held lisinopril due to acute renal failure. CAD Aib, hold aspirin, Plavix. Continue digoxin, due to bradycardia, reduce carvedilol dose Acute renal failure hydration and returned to baseline . Type 2 diabetes, on insulin. 1/2 dose typical lantus and use insulin sliding scale Alzheimer dementia. restart Namenda and Exelon Deep venous thrombosis prophylaxis with SCDs. The patient is a full code.
[2016-12-31] MEDS ORDERED: CIPROFLOXACIN 500 MG TAB PO SCH (15:00)
[2016-12-31] MEDS ORDERED: METRONIDAZOLE 500 MG TAB PO SCH (15:00)
[2016-12-31 15:28] VITALS: BP 133/68; PULSE 50; TEMP 36.9; O2SAT 96
[2016-12-31] MEDS ORDERED: CPR500 PO (15:55)
[2016-12-31] MEDS ORDERED: MTR500 PO (15:55)
[2016-12-31 15:59] VITALS: BP 133/68; PULSE 50; TEMP 36.9; O2SAT 96
--- NOTE | 2016-12-31 16:00 | Discharge Instructions ---
Discharge Instructions Admission Reason for Admission: Gi Bleeding Discharge Discharge Diagnosis / Problem: colitis Discharge Goals Goal(s): Diagnostic testing, Therapeutic intervention Activity Recommendations Activity Limitations: resume your previous activity . Instructions / Follow-Up Instructions / Follow-Up Please hold your asprin and plavix for additional 5 days to allow your bowels bleeding to stop Please take 1/2 of your Coreg (carvedilol) dose until you follow up with your primary care this week or you blood pressure goes up Please see your family doctor early in this week for further monitoring of your medications. Current Hospital Diet Patient's current hospital diet: Diabetes Type 2 Diet Discharge Diet Recommended Diet: Low Sodium Diet (2gm Na), Diabetes Type 2 Diet Pending Studies Studies pending at discharge: yes List of pending studies: final stool cultures Laboratory Results Hemoglobin A1c Test 12/29/16 15:04 Range/Units Estimated Average Glucose 171 mg/dl Hemoglobin A1c 7.6 H 4.5-5.6 % Lipid Panel Test 12/15/16 12:30 Range/Units Triglycerides Level 198 H 0-150 mg/dl Cholesterol Level 94 0-200 mg/dl HDL Cholesterol 29 mg/dl Cholesterol/HDL Ratio 3.2 LDL Cholesterol, Calculated 25 mg/dl Medical Emergencies . Who to Call and When: Medical Emergencies: If at any time you feel your situation is an emergency, please call 911 immediately. . Non-Emergent Contact Non-Emergency issues call your: Primary Care Provider, Fishing Boat Captain Call Non-Emergent contact if: temperature is above 101, your pain is unusual for you . . "Provider Documentation" section prepared by Anthony Cisse. VTE Core Measure Inpt VTE Proph given/why not?: Contraindicated
--- NOTE | 2016-12-31 16:03 | Discharge Summary ---
Discharge Summary Admission Date: Dec 29, 2016 at 15:50 Discharge Date: Dec 31, 2016 Discharge Disposition: Home Principal Diagnosis: colitis with bleeding Immunizations: Have You Had Influenza Vaccine: N/A History of Tetanus Vaccine?: Yes History of Pneumococcal: Yes History of Hepatitis B Vaccine: No Procedures: CT abdomen and pelvis with signs of colonic irritation Consultations: Dr Burns Medication Reconciliation New Medications: Ciprofloxacin (Ciprofloxacin HCl) 500 Mg Tab 500 MG PO BID, #20 TAB Metronidazole (Metronidazole) 500 Mg Tab 500 MG PO TID, #30 TAB Continued Medications: Atorvastatin (Lipitor) 40 Mg Tab 40 MG PO QPM, TAB Carvedilol (Coreg) 25 Mg Tab 25 MG PO BID, TAB Cyanocobalamin (Vitamin B12 100 Mcg) 100 Mcg Tab 100 MCG PO QAM, TAB Digoxin (Digox) 125 Mcg Tab 125 MCG PO DAILY Insulin Glargine (Lantus) 100 Unit/Ml Inj 40 UNITS SC HS, VIAL Lisinopril (Zestril) 40 Mg Tab 40 MG PO DAILY, TAB Memantine Hcl (Namenda Xr) 14 Mg Cap 1 CAP PO HS Pantoprazole (Protonix) 40 Mg Tab 40 MG PO QAM, #30 TAB Rivastigmine Tartrate (Exelon) 4.6 Mg Tdsy 13.3 MG TOP HS Discontinued Medications: Aspirin (Aspirin Ec) 81 Mg Tab 81 MG PO QAM Clopidogrel (Plavix) 75 Mg Tab 75 MG PO QAM, TAB Discharge Exam see todays soap note, did re visit with no exam changes but did tolerate lunch Hospital Course 81-M with lower gastrointestinal bleed, and dizziness, may have been vagal episode and then some colonic ischemia or vica versa Lower gastrointestinal bleed. Serial HGB shows 2 gm drop with hydration hold aspirin and Plavix resume in one week Consult GI is considering colonoscopy as outpt in [address] with left sided colitis, pending stool cultures hypertension. carvedilol dose had been reduced by 1/2 prn hydralazine; held lisinopril due to acute renal failure this has resolved. CAD Aib, hold aspirin, Plavix. Continue digoxin, due to bradycardia, reduce carvedilol dose Acute renal failure hydration and returned to baseline . Type 2 diabetes, on insulin. lantus and use insulin sliding scale Alzheimer dementia. restart Namenda and Exelon Total Time Spent: Greater than 30 minutes This includes examination of the patient, discharge planning, medication reconciliation, and communication with other providers. Discharge Instructions Please refer to the electronic Patient Visit Report (Discharge Instructions) for additional information. Additional Copies To Lee Burns D.O.
== END 2016-12-31 16:40 | disposition home or self-care (01) | DRG 386 ==
LOC: ENRESERVDT → ENRESERVTM → EDBD 11:42 → C.EDA 11:44 → C.MS2W 15:50
PROVIDERS: ADMIT Hospitalist; ATTEND Hospitalist
DX: K51.511 Left sided colitis with rectal bleeding (principal); N17.9 Acute kidney failure, unspecified; D62 Acute posthemorrhagic anemia; K55.9 Vascular disorder of intestine, unspecified; R55 Syncope and collapse; R00.1 Bradycardia, unspecified; E11.9 Type 2 diabetes mellitus without complications; I10 Essential (primary) hypertension; K21.9 Gastro-esophageal reflux disease without esophagitis; I25.10 Atherosclerotic heart disease of native coronary artery without angina pectoris; G30.9 Alzheimer's disease, unspecified; F02.80 Dementia in other diseases classified elsewhere, unspecified severity, without behavioral disturbance, psychotic disturbance, mood disturbance, and anxiety; I25.2 Old myocardial infarction; R63.4 Abnormal weight loss; Z68.23 Body mass index [BMI] 23.0-23.9, adult; Z95.1 Presence of aortocoronary bypass graft; Z95.5 Presence of coronary angioplasty implant and graft; Z96.653 Presence of artificial knee joint, bilateral; Z79.82 Long term (current) use of aspirin; Z79.02 Long term (current) use of antithrombotics/antiplatelets; Z79.4 Long term (current) use of insulin; Z79.899 Other long term (current) drug therapy

== ENCOUNTER → 2017-06-05 | Outpatient (CLI) | payer OTHER, BC ==
[~2017-06-05] MED LIST changes: -ASPI81TA28 PO; -BROM0.07 OPR; +CARV25TA PO; -CHOL20009 PO; -CLOP1TAB15 PO; +CPR500 PO; -CRG25 PO; +DIGO0.1219 PO; -DIGO0.122 PO; +LISI40TA PO; -LSN40 PO; +MTR500 PO; -PRED1SUS OPR
[2017-06-05 17:38] LABS: BASO % 0.4 %; BASO ABS # 0.03 K/uL (0-0.2); COMPLETE YES; EOS % 3.5 %; HEMATOCRIT 41.3 % (42-52); IG% 0.3 %; LYMPH % 20.3 %; LYMPH ABS # 1.41 K/uL (1.2-3.4); MEAN CELL VOLUME 86.6 fL (80-100); MEAN CORPUSCULAR HEMOGLOBIN 29.4 pg (25-34); MEAN CORPUSCULAR HGB CONC 33.9 g/dl (32-36); MEAN PLATELET VOLUME 12.5 fL (7.4-10.4); MONO % 7.9 %; NEUT % 67.6 %; PLATELET COUNT 169 K/uL (130-400); RED BLOOD COUNT 4.77 M/uL (4.7-6.1); WHITE BLOOD COUNT 6.93 K/uL (4.8-10.8)
[2017-06-05 18:39] LABS: BLOOD UREA NITROGEN 30 mg/dl (7-18); BUN/CREATININE RATIO 18.6 (10-20); CARBON DIOXIDE 30 mmol/L (21-32); CHLORIDE 101 mmol/L (98-107); GLUCOSE 358 mg/dl (70-99); POTASSIUM 5.1 mmol/L (3.5-5.1); SODIUM 135 mmol/L (136-145)
[2017-06-05 19:04] LABS: BETA-HYDROXYBUTYRATE 0.68 mg/dL (0.2-2.81)
[2017-06-06 06:01] LABS: ESTIMATED AVERAGE GLUCOSE 197 mg/dl; HA1C FLAG Normal (Normal)
== END | disposition home or self-care (01) ==
LOC: C.LABPBG 11:34
PROVIDERS: ATTEND Internal Medicine Geriatric Medicine
DX: D64.9 Anemia, unspecified (principal); E11.29 Type 2 diabetes mellitus with other diabetic kidney complication; I12.9 Hypertensive chronic kidney disease with stage 1 through stage 4 chronic kidney disease, or unspecified chronic kidney disease

== ENCOUNTER → 2017-11-26 | Outpatient (CLI) | payer OTHER, BC ==
[~2017-11-26] MED LIST changes: +ASPI81TA28 PO; +CHOL1000 PO; +DOCU-94 PO
[2017-11-26 18:07] LABS: BLOOD UREA NITROGEN 21 mg/dl (7-18); CALCIUM 8.9 mg/dl (8.5-10.1); CARBON DIOXIDE 30 mmol/L (21-32); GLUCOSE 276 mg/dl (70-99); POTASSIUM 4.2 mmol/L (3.5-5.1); SODIUM 136 mmol/L (136-145)
[2017-11-26 18:46] LABS: HEMOGLOBIN A1C 9.2 % (4.5-5.6)
== END | disposition home or self-care (01) ==
LOC: C.LABPBG 12:42
PROVIDERS: ATTEND Internal Medicine Geriatric Medicine
DX: Z00.00 Encounter for general adult medical examination without abnormal findings (principal); E11.22 Type 2 diabetes mellitus with diabetic chronic kidney disease; N18.9 Chronic kidney disease, unspecified

== ENCOUNTER 2017-11-27 12:48 | Emergency (ER) | payer OTHER, BC ==
[~2017-11-27] VITALS: Ht 160 cm; Wt 61.0 kg
[~2017-11-27 12:48] MED LIST changes: -ASPI81TA28 PO; -CHOL1000 PO; -DOCU-94 PO
[2017-11-27 13:00] VITALS: TEMP 36.7; Ht 160 cm; Wt 61.0 kg
[2017-11-27] MEDS ORDERED: SODIUM CHLORIDE 0.9% 1000ML 500 ML IV STA (13:41)
--- NOTE | 2017-11-27 13:43 | EMERGENCY ROOM VISIT NOTE ---
History Report prepared by Oswaldo: Jose C Valentino Under the Supervision of: Dr. Percy Limon M.D. First contact with patient: 13:36 Chief Complaint: CONFUSION Stated Complaint: CONFUSED History of Present Illness The patient is an 81 year old male who presents to the Emergency Room with complaints of worsening confusion and difficulty speaking that the patient's noticed this morning, a few hours prior to arrival. Per the patient's the patient was pale this morning and having a hard time articulating a full sentence. She denies any recent fevers, cough, or vomiting, but noted that he has been sleeping roughly 18 hours per day for the past couple of months. The did not notice any one-sided weakness or deficits today. The patient is on Digoxin. The denies any chance of alcohol ingestion. His blood sugar was 165 this morning after breakfast. Source of History: spouse/significant other Onset: A few hours [employer] Position: other (Neuro) Quality: other (Confusion) Timing: worsening Associated Symptoms: No fevers, No cough Review of Systems See HPI for pertinent positives & negatives. A total of 10 systems reviewed and were otherwise negative. Past Medical & Surgical Medical Problems: (1) Alzheimer's dementia (2) Anemia (3) Aortocoronary bypass status (4) Atherosclerosis (5) Dementia (6) Diabetes mellitus (7) Diverticulosis of colon without hemorrhage (8) Esophageal reflux (9) GI bleeding (10) Hx of prostatic malignancy (11) Hypertension (12) Knee joint replacement status Surgical Problems: (1) S/P cholecystectomy Family History Cancer Diabetes mellitus Gallbladder disease Heart disease Hypertension Social History Smoking Status: Never Smoker Alcohol Use: none Marital Status: Housing Status: lives with significant other Occupation Status: retired Current/Historical Medications Scheduled Aspirin (Aspirin Ec), 81 MG PO QAM Atorvastatin (Lipitor), 40 MG PO QPM Carvedilol (Coreg), 25 MG PO BID Cholecalciferol (Vitamin D3), Unknown Dose PO QAM Cyanocobalamin (Vitamin B12 100 Mcg), 100 MCG PO QAM Digoxin (Digox), 125 MCG PO DAILY Docusate Sodium (Colace), 1 CAP PO HS Insulin Glargine (Lantus), 40 UNITS SC HS Lisinopril (Zestril), 40 MG PO DAILY Memantine Hcl (Namenda Xr), 1 CAP PO HS Pantoprazole (Protonix), 40 MG PO QAM Rivastigmine Tartrate (Exelon), 13.3 MG TOP HS Allergies Coded Allergies: Atenolol (Unverified Allergy, Intermediate, UNKNOWN, 11/27/17) Donepezil (Unverified Allergy, Intermediate, GI UPSET, 11/27/17) Fenofibrate (Unverified Allergy, Intermediate, UNKNOWN, 11/27/17) Hydrochlorothiazide (Unverified Allergy, Intermediate, UNKNOWN, 11/27/17) Indomethacin (Unverified Allergy, Intermediate, UNKNOWN, 11/27/17) Niacin (Unverified Allergy, Intermediate, UNKNOWN, 11/27/17) Latex (Verified Allergy, Mild, Skin Irritation, 11/27/17) Adhesives (Unverified Allergy, Unknown, red sore skin from tape, 11/27/17) NSAIDs (Verified Allergy, Unknown, QUESTIONABLE ALLERGY TO INDOCIN, 11/27/17 ) "CAUSES HIM TO BE NERVOUS/SHAKY" Physical Exam Vital Signs Date Time Temp Pulse Resp B/P (MAP) Pulse Ox O2 Delivery O2 Flow Rate FiO2 11/27/17 16:56 50 16 162/67 99 11/27/17 15:25 50 16 162/67 99 Room Air 11/27/17 14:10 56 11/27/17 13:00 36.7 56 18 109/62 98 Room Air Physical Exam GENERAL: Patient is in no acute distress. HEENT: No acute trauma, normocephalic atraumatic, mucous membranes moist, no nasal congestion, no scleral icterus. NECK: No stridor, no adenopathy, no meningismus, trachea is midline. LUNGS: Clear to auscultation bilaterally, no wheeze, no rhonchi, breath sounds equal. HEART: 3/6 systolic murmur, regular rate and rhythm appreciated. ABDOMEN: Soft, nontender, bowel sounds positive, no hernias, no peritonitis. EXTREMITIES: No cyanosis or edema, full range of motion of all the joints without pain or difficulty, no signs for acute trauma. NEUROLOGIC: Patient exhibits confusion consistent with Alzheimer's. He is awake and alert. No focal motor deficit. No pronator drift, no speech slur. SKIN: No rash, no jaundice, no diaphoresis. Medical Decision & Procedures ER Provider Diagnostic Interpretation: Radiology results as stated below per my review and radiologist interpretation: CHEST ONE VIEW PORTABLE CLINICAL HISTORY: EVALUATE ALTERED MENTAL STATUS/WEAKNESS dyspnea COMPARISON STUDY: 12/29/2016 FINDINGS: Bilateral pleural plaques are present described and unchanged. No new or interval finding. No focal infiltrate. Diaphragms smooth. Prior median sternotomy. IMPRESSION: Chronic and postoperative change. No acute process. The above report was generated using voice recognition software. It may contain grammatical, syntax or spelling errors. Electronically signed by: Jose Roberto Pérez M.D. 11/27/2017 2:29 PM Dictated Date/Time: 11/27/2017 2:28 PM HEAD WITHOUT CONTRAST (CT) CT DOSE: 537.48 mGy.cm HISTORY: Mental status change EVALUATE ALTERED MENTAL STATUS/WEAKNESS TECHNIQUE: Multiaxial CT images of the head were performed without the use of intravenous contrast. A dose lowering technique was utilized adhering to the principles of ALARA. Comparison: 12/03/2015 Findings: The paranasal sinuses and mastoid air cells are clear. Mild cerebellar as well as cerebral atrophy. Moderate ventricular prominence unchanged in the prior study. This primarily appears to be compensatory. Moderate generalized atrophy. Moderate chronic small vessel change. Impression: Chronic and age-related change. No acute process. No change from the prior exam. The above report was generated using voice recognition software. It may contain grammatical, syntax or spelling errors. Electronically signed by: Jose Roberto Pérez M.D. 11/27/2017 2:26 PM Dictated Date/Time: 11/27/2017 2:23 PM Laboratory Results 11/27/17 14:00 Red Blood Count 4.86, Mean Corpuscular Volume 84.6, Mean Corpuscular Hemoglobin 30.0, Mean Corpuscular Hemoglobin Concent 35.5, Mean Platelet Volume 11.5, Neutrophils (%) (Auto) 68.8, Lymphocytes (%) (Auto) 21.0, Monocytes (%) (Auto) 6.6, Eosinophils (%) (Auto) 2.9, Basophils (%) (Auto) 0.4, Neutrophils # (Auto) 4.67, Lymphocytes # (Auto) 1.43, Monocytes # (Auto) 0.45, Eosinophils # (Auto) 0.20, Basophils # (Auto) 0.03 11/27/17 14:00 Test 11/27/17 14:00 11/27/17 15:23 White Blood Count 6.80 K/uL (4.8-10.8) Red Blood Count 4.86 M/uL (4.7-6.1) Hemoglobin 14.6 g/dL (14.0-18.0) Hematocrit 41.1 % (42-52) Mean Corpuscular Volume 84.6 fL (80-100) Mean Corpuscular Hemoglobin 30.0 pg (25-34) Mean Corpuscular Hemoglobin Concent 35.5 g/dl (32-36) Platelet Count 164 K/uL (130-400) Mean Platelet Volume 11.5 fL (7.4-10.4) Neutrophils (%) (Auto) 68.8 % Lymphocytes (%) (Auto) 21.0 % Monocytes (%) (Auto) 6.6 % Eosinophils (%) (Auto) 2.9 % Basophils (%) (Auto) 0.4 % Neutrophils # (Auto) 4.67 K/uL (1.4-6.5) Lymphocytes # (Auto) 1.43 K/uL (1.2-3.4) Monocytes # (Auto) 0.45 K/uL (0.11-0.59) Eosinophils # (Auto) 0.20 K/uL (0-0.5) Basophils # (Auto) 0.03 K/uL (0-0.2) RDW Standard Deviation 41.7 fL (36.4-46.3) RDW Coefficient of Variation 13.8 % (11.5-14.5) Immature Granulocyte % (Auto) 0.3 % Immature Granulocyte # (Auto) 0.02 K/uL (0.00-0.02) Anion Gap 4.0 mmol/L (3-11) Est Creatinine Clear Calc Drug Dose 31.9 ml/min Estimated GFR () 51.5 Estimated GFR (Non- 44.5 BUN/Creatinine Ratio 13.4 (10-20) Calcium Level 9.4 mg/dl (8.5-10.1) Total Bilirubin 0.8 mg/dl (0.2-1) Aspartate Amino Transf (AST/SGOT) 28 U/L (15-37) Alanine Aminotransferase (ALT/SGPT) 47 U/L (12-78) Alkaline Phosphatase 133 U/L (45-117) Troponin I < 0.015 ng/ml (0-0.045) Total Protein 7.3 gm/dl (6.4-8.2) Albumin 3.8 gm/dl (3.4-5.0) Globulin 3.5 gm/dl (2.5-4.0) Albumin/Globulin Ratio 1.1 (0.9-2) Thyroid Stimulating Hormone (TSH) 1.800 uIu/ml (0.300-4.500) Digoxin Level 1.2 ng/ml (0.8-2.0) Urine Color YELLOW Urine Appearance CLEAR (CLEAR) Urine pH 5.0 (4.5-7.5) Urine Specific Fowler 1.026 (1.000-1.030) Urine Protein NEG (NEG) Urine Glucose (UA) 3+ (NEG) Urine Ketones NEG (NEG) Urine Occult Blood NEG (NEG) Urine Nitrite NEG (NEG) Urine Bilirubin NEG (NEG) Urine Urobilinogen NEG (NEG) Urine Leukocyte Esterase NEG (NEG) Laboratory results reviewed by me. Medications Administered Medications (Trade) Dose Ordered Sig/Ashley Route Start Time Stop Time Status Last Admin Dose Admin Sodium Chloride 500 ml @ 999 mls/hr Q31M STAT IV 11/27/17 13:41 11/27/17 14:11 DC 11/27/17 14:06 999 MLS/HR Sodium Chloride 500 ml @ 999 mls/hr Q31M STAT IV 11/27/17 15:56 11/27/17 16:26 DC 11/27/17 16:10 999 MLS/HR ECG Indication: altered mental status Rate (beats per minute): 53 Rhythm: sinus bradycardia Findings: 1st degree AV block, LBBB, PAC, no acute ischemic change ED Course 1338: The patient was evaluated in room A2. A complete history and physical exam was performed. 1341: Ordered Sodium Chloride 500 mL @ 999 mL/hr IV. 1556: Ordered Sodium Chloride 500 mL @ 999 mL/hr IV. 1610: Reevaluated the patient. Discussed results and discharge instructions: He verbalized understanding and agreement. The patient is ready for discharge. Medical Decision Differential Diagnosis includes; Dehydration, metabolic derangement, electrolyte imbalance, stroke, intracranial bleed, infection, UTI. There is no leukocytosis or concerning anemia. Renal panel testing shows some renal insufficiency which is baseline. The blood sugar was somewhat elevated but not critical. No hepatitis. The patient appears to be in a euthyroid state. EKG shows a sinus bradycardia, no acute ischemia. Cardiac enzyme testing 1 is not consistent with acute cardiac injury. Chest x-ray does not show pneumonia or CHF. Brain CT shows no acute bleed or mass effect. Urinalysis does not show evidence for infection. Digoxin level was not toxic. On exam, the patient did not have any focal neurologic deficits-no findings of CVA. He was awake and alert, he was not toxic or febrile. The patient received IV saline, his believes he seems back to baseline. His color has improved. Certainly, the presentation today may have been from dehydration. The patient will stay better hydrated at home. He will see his doctor this week for a recheck. If things are worsening, he can return. Medication Reconcilliation Current Medication List: was personally reviewed by me Blood Pressure Screening Patient's blood pressure: Elevated blood pressure Blood pressure disposition: Elevated BP felt to be situational Impression Primary Impression: Weakness Additional Impressions: Confusion Dehydration Scribe Attestation The scribe's documentation has been prepared under my direction and personally reviewed by me in its entirety. I confirm that the note above accurately reflects all work, treatment, procedures, and medical decision making performed by me. Departure Information Dispostion Home / Self-Care Referrals Jay Jay Tejada M.D. (PCP) Forms HOME CARE DOCUMENTATION FORM, IMPORTANT VISIT INFORMATION, WORK / SCHOOL INSTRUCTIONS Patient Instructions My [facility] Additional Instructions see neli mcgee this week for a recheck return for worsening symptoms or fever testing today was ok as discussed stay well hydrated--more fluids throughout the day Problem Qualifiers
[2017-11-27] MEDS ORDERED: CHOL1000 PO (14:09)
[2017-11-27] MEDS ORDERED: DOCU-94 PO (14:09)
[2017-11-27] MEDS ORDERED: ASPI81TA28 PO (14:09)
[2017-11-27 14:19] LABS: BASO % 0.4 %; BASO ABS # 0.03 K/uL (0-0.2); EOS % 2.9 %; HEMATOCRIT 41.1 % (42-52); HEMOGLOBIN 14.6 g/dL (14.0-18.0); IG# 0.02 K/uL (0.00-0.02); LYMPH ABS # 1.43 K/uL (1.2-3.4); MEAN CELL VOLUME 84.6 fL (80-100); MEAN CORPUSCULAR HGB CONC 35.5 g/dl (32-36); MEAN PLATELET VOLUME 11.5 fL (7.4-10.4); MONO % 6.6 %; MONO ABS # 0.45 K/uL (0.11-0.59); NEUT % 68.8 %; NEUT ABS # 4.67 K/uL (1.4-6.5); PLATELET COUNT 164 K/uL (130-400); RED CELL DISTRIBUTION WIDTH CV 13.8 % (11.5-14.5); RED CELL DISTRIBUTION WIDTH SD 41.7 fL (36.4-46.3)
--- NOTE | 2017-11-27 14:27 | DIAGNOSTIC IMAGING REPORT ---
HEAD WITHOUT CONTRAST (CT) CT DOSE: 537.48 mGy.cm HISTORY: Mental status change EVALUATE ALTERED MENTAL STATUS/WEAKNESS TECHNIQUE: Multiaxial CT images of the head were performed without the use of intravenous contrast. A dose lowering technique was utilized adhering to the principles of ALARA. Comparison: 12/03/2015 Findings: The paranasal sinuses and mastoid air cells are clear. Mild cerebellar as well as cerebral atrophy. Moderate ventricular prominence unchanged in the prior study. This primarily appears to be compensatory. Moderate generalized atrophy. Moderate chronic small vessel change. Impression: Chronic and age-related change. No acute process. No change from the prior exam. The above report was generated using voice recognition software. It may contain grammatical, syntax or spelling errors. Electronically signed by: Jose Roberto Pérez M.D. 11/27/2017 2:26 PM Dictated Date/Time: 11/27/2017 2:23 PM
--- NOTE | 2017-11-27 14:30 | DIAGNOSTIC IMAGING REPORT ---
CHEST ONE VIEW PORTABLE CLINICAL HISTORY: EVALUATE ALTERED MENTAL STATUS/WEAKNESS dyspnea COMPARISON STUDY: 12/29/2016 FINDINGS: Bilateral pleural plaques are present described and unchanged. No new or interval finding. No focal infiltrate. Diaphragms smooth. Prior median sternotomy. IMPRESSION: Chronic and postoperative change. No acute process. The above report was generated using voice recognition software. It may contain grammatical, syntax or spelling errors. Electronically signed by: Jose Roberto Pérez M.D. 11/27/2017 2:29 PM Dictated Date/Time: 11/27/2017 2:28 PM
[2017-11-27 14:38] LABS: ALBUMIN 3.8 gm/dl (3.4-5.0); ALT/SGPT 47 U/L (12-78); AST/SGOT 28 U/L (15-37); BLOOD UREA NITROGEN 20 mg/dl (7-18); CALCIUM 9.4 mg/dl (8.5-10.1); CARBON DIOXIDE 29 mmol/L (21-32); CREATININE 1.46 mg/dl (0.60-1.40); GLUCOSE 230 mg/dl (70-99); POTASSIUM 4.4 mmol/L (3.5-5.1); SODIUM 134 mmol/L (136-145)
[2017-11-27 14:49] LABS: ALKALINE PHOSPHATASE 133 U/L (45-117); TOTAL PROTEIN 7.3 gm/dl (6.4-8.2)
[2017-11-27] MEDS ORDERED: SODIUM CHLORIDE 0.9% 500ML 500 ML IV STA (15:56)
[2017-11-27 16:56] VITALS: BP 162/67; PULSE 50; O2SAT 99
== END 2017-11-27 16:55 | disposition home or self-care (01) ==
LOC: C.EDB 12:49 → C.EDA 16:55
DX: G30.9 Alzheimer's disease, unspecified (principal); F02.80 Dementia in other diseases classified elsewhere, unspecified severity, without behavioral disturbance, psychotic disturbance, mood disturbance, and anxiety; E11.65 Type 2 diabetes mellitus with hyperglycemia; R53.1 Weakness; E86.0 Dehydration; I10 Essential (primary) hypertension; N28.9 Disorder of kidney and ureter, unspecified; R00.1 Bradycardia, unspecified; Z79.82 Long term (current) use of aspirin; Z79.4 Long term (current) use of insulin; Z83.3 Family history of diabetes mellitus; Z82.49 Family history of ischemic heart disease and other diseases of the circulatory system; Z83.79 Family history of other diseases of the digestive system

== ENCOUNTER 2019-08-21 15:25 | Inpatient (IN) ==
[2019-08-21] MEDS ORDERED: SODIUM CHLORIDE 0.9% 1000ML 1,000 ML IV SCH (16:00)
[2019-08-21] MEDS ORDERED: SODIUM CHLORIDE 0.9% 500 ML IV SCH (16:00)
--- NOTE | 2019-08-21 16:09 | XRay Report ---
SINGLE VIEW CHEST CLINICAL HISTORY: Generalized weakness. FINDINGS: An AP, portable, upright chest radiograph is compared to study dated 08/08/2019. The examina tion is degraded by portable technique and patient rotation. The patient is status post midline ziegler otomy. The heart is enlarged and there is atherosclerotic calcification of the thoracic aorta. Large calcified pleural plaques are again noted. No airspace consolidation or large pleural effusion is howie ntified. No pneumothorax is seen. The skeletal structures are osteopenic. The bony thorax is grossly intact. IMPRESSION: Cardiomegaly with no acute cardiopulmonary abnormality. Electronically signed by: Percy Salgado M.D. 08/21/2019 4:07 PM
[2019-08-21 16:27] LABS: Basophils # (auto) 0.03 K/uL (0-0.2); Basophils % (auto) 0.5 %; Eosinophils % (auto) 3.5 %; Hematocrit (blood only) 41.2 % (42-52); Hemoglobin 14.4 g/dL (14.0-18.0); Immature Granulocytes # (auto) 0.01 K/uL (0.00-0.02); Immature Granulocytes % (auto) 0.2 %; Lymphocytes # (auto) 1.38 K/uL (1.2-3.4); Lymphocytes % (auto) 24.3 %; Mean Corpuscular Hemoglobin 29.7 pg (25-34); Mean Corpuscular Volume 84.9 fL (80-100); Monocytes # (auto) 0.35 K/uL (0.11-0.59); Monocytes % (auto) 6.2 %; Neutrophils # (auto) 3.72 K/uL (1.4-6.5); Neutrophils % (auto) 65.3 %; Platelet Count 141 K/uL (130-400); RDW Coefficient of Variation 13.4 % (11.5-14.5); RDW Standard Deviation 41.2 fL (36.4-46.3); Red Blood Count 4.85 M/uL (4.7-6.1); White Blood Count 5.69 K/uL (4.8-10.8)
[2019-08-21 16:37] LABS: INR 1.1 (0.9-1.1); Prothrombin Time 10.9 Seconds (9.0-12.0)
--- NOTE | 2019-08-21 17:00 | CT Scan Report ---
CT SCAN OF THE BRAIN WITHOUT IV CONTRAST CLINICAL HISTORY: Change in mental status. COMPARISON STUDY: CT of the brain dated 08/08/2019. TECHNIQUE: Unenhanced axial CT scan of the brain is performed from the vertex to the skull base. A do se lowering technique was utilized adhering to the principles of ALARA. CT DOSE: 638.56 mGycm FINDINGS: Brain parenchyma: There are age-related involutional changes noting moderate patchy subcortical and periventricular microangiopathic change. There is no hemorrhage, mass effect, or evidence of acute te rritorial ischemia by CT criteria. Gonzales-white matter differentiation is preserved. No extra-axial flu id collection is seen. Ventricles, sulci, cisterns: Prominent secondary to involutional change. Intracranial vasculature: There is atherosclerotic calcification of the cavernous carotid and vertebr al arteries. Calvarium: Unremarkable. Sinuses and mastoids: The visualized paranasal sinuses are clear. The mastoid air cells are well pneu matized. Orbits: The bony orbits are grossly intact. There are bilateral ocular lens implants. IMPRESSION: There is no hemorrhage, mass effect, or evidence of acute territorial ischemia by CT milly vila. Electronically signed by: Percy Salgado M.D. 08/21/2019 4:58 PM
[2019-08-21 17:08] LABS: Alanine Aminotransferase 40 U/L (12-78); Albumin Globulin Ratio 1.2 (0.9-2); Albumin Level 3.9 gm/dl (3.4-5.0); Alkaline Phosphatase 107 U/L (45-117); BUN Creatinine Ratio 14.8 (10-20); Bilirubin,Total 0.8 mg/dl (0.2-1); Blood Urea Nitrogen 21 mg/dl (7-18); Calcium 9.1 mg/dl (8.5-10.1); Carbon Dioxide 26 mmol/L (21-32); Chloride 105 mmol/L (98-107); Est GFR (African American) 51.7; Est GFR (Non-African American) 44.6; Globulin 3.2 gm/dl (2.5-4.0); Glucose 224 mg/dl (70-99); Sodium 136 mmol/L (136-145); Total Protein 7.1 gm/dl (6.4-8.2); Troponin I < 0.015 ng/ml (0-0.045)
[2019-08-21 18:06] LABS: Appearance Urine Clear (Clear); Bilirubin Urine Negative (Negative); Blood Urine Negative (Negative); Color Urine Yellow; Glucose Urine UA 2+ (Negative); Ketones Urine Negative (Negative); Leukocyte Esterase Urine Negative (Negative); Nitrite Urine Negative (Negative); Protein Urine Negative (Negative); Specific Gravity Urine 1.022 (1.000-1.030); Urobilinogen Urine Negative (Negative)
[2019-08-21 18:24] LABS: Potassium 4.2 mmol/L (3.5-5.1)
--- NOTE | 2019-08-21 19:12 | Emergency Department Note ---
Entered by Juan Carlos Harris acting as a scribe for Quinton You MD ED Provider Note CHIEF COMPLAINT: weakness HISTORY OF PRESENT ILLNESS: The patient is an 83 y/o male who presents to the emergency department for evaluation of constant lack of energy that began 4 days ago. The patient can no longer move on his own and has been having termers according to family. The family started that he started having diarrhea three days ago. The notes that the patient was laying in bed last night with his tongue out and his arms straight up in the air and has overall been unable to follow instruction. Pt denies headache, chest pain, abdominal pain. HPI and ROS are limited secondary to AMS. REVIEW OF SYSTEMS: See HPI for pertinent positives and negatives. HPI and ROS are limited secondary to AMS. PMHx/PSHx: Dementia, CAD, CABG, stents, knee replacement, chronic neck pain SOCIAL HISTORY: Patient lives at home. PHYSICAL EXAM: GENERAL: Awake, alert, well-appearing, in no distress HENT: Normocephalic, atraumatic. Oropharynx unremarkable. EYES: PERRL. Normal conjunctiva. Sclera non-icteric. NECK: Inspection normal. Non-tender. Supple. No nuchal rigidity. FROM. No masses. RESPIRATORY: Clear to auscultation. No wheezes. No rales. Normal respiratory effort. CARDIAC: Normal rate. Normal rhythm. No murmurs. No rubs. Extremities warm and well perfused. Pulses equal. No JVD. GI: Soft, non-distended. No tenderness to palpation. No rebound or guarding. No masses. RECTAL: Deferred. MUSCULOSKELETAL: Atraumatic. Chest examination reveals no tenderness. The back is symmetrical on inspection without obvious abnormality. There is no CVA tenderness to palpation. No joint edema. LOWER EXTREMITIES: Calves are equal size bilaterally and non-tender. No edema. No discoloration. NEURO: Demented sensorium. Follows basic commands. No sensory or motor deficits noted. SKIN: No rash or jaundice noted. EMERGENCY DEPARTMENT COURSE: 1609: Past medical records reviewed. The patient was evaluated in room B12, and a complete history and physical examination were performed. 1800: I spoke with Dr. Sanders who will evaluate the patient for further management. 1805: I updated the family on the treatment plan. MEDICAL DECISION MAKING: B12 Nursing notes reviewed and agree them. Additional history obtained from family. The patient's history was concerning for altered mental status. Differential diagnosis: Etiologies such as advancing dementia, dehydration, infection, hypoglycemia, electrolyte abnormalities, cardiac sources, intracerebral event, toxicologic, neurologic, as well as others were entertained. Physical examination: As above. The patient was altered with what appeared to be a demented sensorium but nonfocal. ER treatment provided: IV Lock Normal saline hydration On reassessment the patient was stable. Diagnostics interpretation by me: ECG: No acute ischemia. The labs revealed an unremarkable CBC and chemistry panel. Urinalysis did not reveal any signs of infection. Imaging studies: Chest x-ray and head CT were negative for acute process. The patient has had significant decline over the last several days. He has advancing dementia. Family is unable to take care of him at home. Further management in the hospital will be necessary. Consultation: A consultation was placed with the hospitalist. The case was discussed and diagnostics were reviewed. The patient was evaluated in the ER for further treatment. IMPRESSION: AMS, hypotension, PLAN: Admit The scribe's documentation has been prepared under my direction and personally reviewed by me in its entirety. I confirm that the note above accurately reflects all work, treatment, procedures, and medical decision making performed by me. Impression & Plan AMS (altered mental status), Hypotension Past Med/Surg History Medical History Vitamin D deficiency Osteoarthritis Ischemic cardiomyopathy Incontinence Dyslipidemia Chronic kidney disease Arteriosclerotic coronary artery disease Arteriosclerosis of carotid artery Urinary retention CAD (coronary artery disease) Orthostasis Hypertension Alzheimer's dementia Anemia Aortocoronary bypass status Diabetes mellitus Diverticulosis of colon without hemorrhage Esophageal reflux Hx of prostatic malignancy Knee joint replacement status LBBB (left bundle branch block) History of colitis (Resolved) History of lower gastrointestinal bleeding (Resolved) Near syncope (Resolved) Past myocardial infarction (Resolved) History of prostate cancer treated with radiation seeds Surgical History S/P cholecystectomy (Resolved) H/O total knee replacement bilateral History of coronary artery stent placement 2 stents - [facility] Hx of CABG 2000 - [facility]; 4-vessel Family History Father , age 61 Coronary heart disease from [place] Congestive heart failure Myocardial infarction Mother , age 89 Congestive heart failure Social History Preferred Language: Kazakh Communication Ability: Effective Certified Medication Aide Required: No Beliefs That Will Affect Care: Roman Catholic Roman Catholic Beliefs: Anabaptist marital status details: - lives in [place] with ; 4 sons Current Living Situation: Family current 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 status: 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; 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; 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; 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 Feels Safe at Home: Yes Smoking Status: Never smoker Hx Alcohol Use: No Hx Substance Use: No Results & Data Vital Signs Vital Signs - 24 hr 08/21/19 15:38 08/21/19 16:26 08/21/19 16:58 Temperature 36.8 C Temperature Source Oral Sepsis Recent Fever Within 48 Hours No Sepsis New/Unexplained Change in Mental Status No Sepsis Action Taken by Nursing No Action Required Pulse Rate 68 52 L Pulse Rate [Right Finger] Pulse Rate from SpO2 Sensor 58 L Respiratory Rate 18 17 Blood Pressure 92/52 L 162/70 H Blood Pressure [Right Arm] Blood Pressure Mean 65 100 Blood Pressure Mean [Right Arm] Pulse Oximetry 93 96 97 Oxygen Delivery Method Room Air Room Air 08/21/19 19:00 Temperature Temperature Source Sepsis Recent Fever Within 48 Hours Sepsis New/Unexplained Change in Mental Status Sepsis Action Taken by Nursing Pulse Rate Pulse Rate [Right Finger] 55 L Pulse Rate from SpO2 Sensor Respiratory Rate 20 Blood Pressure Blood Pressure [Right Arm] 182/73 H Blood Pressure Mean Blood Pressure Mean [Right Arm] 109 Pulse Oximetry 98 Oxygen Delivery Method Home Medications Current Medication List: was personally reviewed by me Laboratory Data Attestation: I reviewed the patient's lab results. Result diagrams: 08/21/19 16:15 08/21/19 17:41 Lab Results 08/21/19 08/21/19 08/21/19 Range/Units 16:15 16:15 16:15 WBC 5.69 (4.8-10.8) K/uL RBC 4.85 (4.7-6.1) M/uL Hgb 14.4 (14.0-18.0) g/dL Hct 41.2 L (42-52) % MCV 84.9 (80-100) fL MCH 29.7 (25-34) pg MCHC 35.0 (32-36) g/dL RDW Std Deviation 41.2 (36.4-46.3) fL RDW Coeff of Diana 13.4 (11.5-14.5) % Plt Count 141 (130-400) K/uL MPV 11.0 H (7.4-10.4) fL Immature Gran % (Auto) 0.2 % Neut % (Auto) 65.3 % Lymph % (Auto) 24.3 % [place] % (Auto) 6.2 % Eos % (Auto) 3.5 % Baso % (Auto) 0.5 % Immature Gran # (Auto) 0.01 (0.00-0.02) K/uL Neut # (Auto) 3.72 (1.4-6.5) K/uL Lymph # (Auto) 1.38 (1.2-3.4) K/uL [place] # (Auto) 0.35 (0.11-0.59) K/uL Eos # (Auto) 0.20 (0-0.5) K/uL Baso # (Auto) 0.03 (0-0.2) K/uL PT 10.9 (9.0-12.0) Seconds INR 1.1 (0.9-1.1) Sodium 136 (136-145) mmol/L Potassium (3.5-5.1) mmol/L Chloride 105 (98-107) mmol/L Carbon Dioxide 26 (21-32) mmol/L Anion Gap 5.0 (3-11) BUN 21 H (7-18) mg/dl Creatinine 1.44 H (0.6-1.4) mg/dl Est Cr Clr Drug Dosing 30.0 ml/min Est GFR ( Amer) 51.7 Est GFR (Non-Af Amer) 44.6 BUN/Creatinine Ratio 14.8 (10-20) Glucose 224 H (70-99) mg/dl POC Lactic Acid Chucho (0.90-1.70) mmol/L Calcium 9.1 (8.5-10.1) mg/dl Magnesium (1.8-2.4) mg/dl Total Bilirubin 0.8 (0.2-1) mg/dl AST (15-37) U/L ALT 40 (12-78) U/L Alkaline Phosphatase 107 (45-117) U/L Troponin I < 0.015 (0-0.045) ng/ml Total Protein 7.1 (6.4-8.2) gm/dl Albumin 3.9 (3.4-5.0) gm/dl Globulin 3.2 (2.5-4.0) gm/dl Albumin/Globulin Ratio 1.2 (0.9-2) TSH 2.680 (0.300-4.500) uIu/ml Urine Color Urine Appearance (Clear) Urine pH (4.5-7.5) Ur Specific [place] (1.000-1.030) Urine Protein (Negative) Urine Glucose (UA) (Negative) Urine Ketones (Negative) Urine Blood (Negative) Urine Nitrite (Negative) Urine Bilirubin (Negative) Urine Urobilinogen (Negative) Ur Leukocyte Esterase (Negative) 08/21/19 08/21/19 08/21/19 Range/Units 16:33 17:05 17:41 WBC (4.8-10.8) K/uL RBC (4.7-6.1) M/uL Hgb (14.0-18.0) g/dL Hct (42-52) % MCV (80-100) fL MCH (25-34) pg MCHC (32-36) g/dL RDW Std Deviation (36.4-46.3) fL RDW Coeff of Diana (11.5-14.5) % Plt Count (130-400) K/uL MPV (7.4-10.4) fL Immature Gran % (Auto) % Neut % (Auto) % Lymph % (Auto) % [place] % (Auto) % Eos % (Auto) % Baso % (Auto) % Immature Gran # (Auto) (0.00-0.02) K/uL Neut # (Auto) (1.4-6.5) K/uL Lymph # (Auto) (1.2-3.4) K/uL [place] # (Auto) (0.11-0.59) K/uL Eos # (Auto) (0-0.5) K/uL Baso # (Auto) (0-0.2) K/uL PT (9.0-12.0) Seconds INR (0.9-1.1) Sodium (136-145) mmol/L Potassium 4.2 (3.5-5.1) mmol/L Chloride (98-107) mmol/L Carbon Dioxide (21-32) mmol/L Anion Gap (3-11) BUN (7-18) mg/dl Creatinine (0.6-1.4) mg/dl Est Cr Clr Drug Dosing ml/min Est GFR ( Amer) Est GFR (Non-Af Amer) BUN/Creatinine Ratio (10-20) Glucose (70-99) mg/dl POC Lactic Acid Chucho 1.22 (0.90-1.70) mmol/L Calcium (8.5-10.1) mg/dl Magnesium 2.0 (1.8-2.4) mg/dl Total Bilirubin (0.2-1) mg/dl AST 24 (15-37) U/L ALT (12-78) U/L Alkaline Phosphatase (45-117) U/L Troponin I (0-0.045) ng/ml Total Protein (6.4-8.2) gm/dl Albumin (3.4-5.0) gm/dl Globulin (2.5-4.0) gm/dl Albumin/Globulin Ratio (0.9-2) TSH (0.300-4.500) uIu/ml Urine Color Yellow Urine Appearance Clear (Clear) Urine pH 5.0 (4.5-7.5) Ur Specific [place] 1.022 (1.000-1.030) Urine Protein Negative (Negative) Urine Glucose (UA) 2+ H (Negative) Urine Ketones Negative (Negative) Urine Blood Negative (Negative) Urine Nitrite Negative (Negative) Urine Bilirubin Negative (Negative) Urine Urobilinogen Negative (Negative) Ur Leukocyte Esterase Negative (Negative) Administered Medications Sodium Chloride (Nss 1000ml) 1,000 mls @ 125 mls/hr IV .Q8H [facility] Stop: 08/21/19 23:59 Last Admin: 08/21/19 17:48 Dose: 125 mls/hr Documented by: [id number] Discontinued Medications Sodium Chloride (Nss) 500 mls @ 999 mls/hr IV .Q31M YANETH Stop: 08/21/19 16:30 Last Infusion: 08/21/19 17:08 Dose: 0 mls/hr Documented by: [id number] Admin: 08/21/19 16:34 Dose: 999 mls/hr Documented by: [id number] Imaging Data Radiologist's Impression: Radiology results as stated below per my review and the radiologist's interpretation: SINGLE VIEW CHEST CLINICAL HISTORY: Generalized weakness. FINDINGS: An AP, portable, upright chest radiograph is compared to study dated 08/08/2019. The examination is degraded by portable technique and patient rotation. The patient is status post midline sternotomy. The heart is enlarged and there is atherosclerotic calcification of the thoracic aorta. Large calcified pleural plaques are again noted. No airspace consolidation or large pleural effusion is identified. No pneumothorax is seen. The skeletal structures are osteopenic. The bony thorax is grossly intact. IMPRESSION: Cardiomegaly with no acute cardiopulmonary abnormality. Electronically signed by: Percy Salgado M.D. 08/21/2019 4:[address] SCAN OF THE BRAIN WITHOUT IV CONTRAST CLINICAL HISTORY: Change in mental status. COMPARISON STUDY: CT of the brain dated 08/08/2019. TECHNIQUE: Unenhanced axial CT scan of the brain is performed from the vertex to the skull base. A dose lowering technique was utilized adhering to the principles of ALARA. CT DOSE: 638.56 mGycm FINDINGS: Brain parenchyma: There are age-related involutional changes noting moderate patchy subcortical and periventricular microangiopathic change. There is no hemorrhage, mass effect, or evidence of acute territorial ischemia by CT criteria. Gonzales-white matter differentiation is preserved. No extra-axial fluid collection is seen. Ventricles, sulci, cisterns: Prominent secondary to involutional change. Intracranial vasculature: There is atherosclerotic calcification of the cavernous carotid and vertebral arteries. Calvarium: Unremarkable. Sinuses and mastoids: The visualized paranasal sinuses are clear. The mastoid air cells are well pneumatized. Orbits: The bony orbits are grossly intact. There are bilateral ocular lens implants. IMPRESSION: There is no hemorrhage, mass effect, or evidence of acute territorial ischemia by CT criteria. Electronically signed by: Percy Salgado M.D. 08/21/2019 4:58 PM ECG Data Attestation: I personally reviewed and interpreted this ECG as follows: Indication: weakness Rate (beats per minute): 54 Rhythm: sinus bradycardia Findings: + RBBB, + T-wave inversion (Lateral) and + left axis deviation; no PVC and no ST elevation Blood Pressure Blood Pressure Findings: Elevated blood pressure Blood Pressure Disposition: further management by hospitalist Discharge Plan Visit Data Chief Complaint: Weakness Stated Complaint: WEAKNESS - CANT WALK, MOVE, TURNOVER ED Provider: Quinton You Discharge Problem: AMS (altered mental status), Hypotension Patient Disposition: Being Evaluated by Hospitalist Forms Stand Alone Forms: [facility] Prescriptions Prescriptions: No Action tamsulosin 0.4 mg capsule 0.4 mg PO QAM Qty: 30 RF: 0 carvedilol 12.5 mg tablet 12.5 mg PO BID RF: 0 cyanocobalamin (vitamin B-12) [Vitamin B-12] 100 mcg Tablet 100 mcg PO QAM RF: 0 docusate sodium [Colace] 100 mg Capsule 300 mg PO HS RF: 0 lisinopril 40 mg tablet 20 mg PO QAM RF: 0 cholecalciferol (vitamin D3) [Vitamin D3] 2,000 unit Capsule 2,000 unit PO DAILY RF: 0 rivastigmine 13.3 mg/24 hour patch 24 hour 1 patch Topical HS RF: 0 memantine 21 mg capsule,sprinkle,ER 24hr 21 mg PO HS RF: 0 aspirin 81 mg Tablet,Delayed Release (Dr/Ec) 81 mg PO QAM RF: 0 atorvastatin 40 mg tablet 40 mg PO HS RF: 0 pantoprazole 40 mg tablet,delayed release (DR/EC) 40 mg PO QAM RF: 0 digoxin 125 mcg tablet 125 mcg PO QAM RF: 0 Lantus Solostar U-100 Insulin 100 unit/mL (3 mL) insulin pen 41 unit SQ HS RF: 0 Referrals Referrals: Cornelia Higuera DO [Primary Care Provider] - Discharge Problem: AMS (altered mental status) Qualifiers: Altered mental status type: unspecified Qualified Code(s): R41.82 - Altered mental status, unspecified Hypotension Qualifiers: Hypotension type: unspecified hypotension type Qualified Code(s): I95.9 - Hypotension, unspecified The scribe's documentation has been prepared under my direction and personally reviewed by me in its entirety. I confirm that the note above accurately reflects all work, treatment, procedures, and medical decision making performed by me.
--- NOTE | 2019-08-21 21:12 | History & Physical Report ---
Date of Service August 21, 2019 Assessment & Plan (1) Alzheimer's dementia: Progressive severe Alzheimer dementia. Patient decline has been ongoing for several weeks per patient's son and narrative. Patient is not able to feed himself. He is incontinent for urine and stool. Patient said she has made at home to help. Patient is not able anymore to participate in activities such as walking or bathing Patient is not able to follow any instructions or directions which would be difficult for physical or 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 therapy to evaluate and assist CT scan of the head is negative MRI brain without contrast pending Consider consulting Dr. Servin neurology since he has seen patient in the past for further recommendations The condition appears to be worsening of of Alzheimer dementia as rather natural progression of disease rather than acute stage. The diagnosis will be more clear after we received brain MRI. She and is not open for any kind of placement. She is determined that she is going to take patient home after our evaluation is done. DVT prophylaxis with Lovenox Continue home medicine for Alzheimer's dementia: Vitamin D, vitamin B12, memantine 21 mg p.o. nightly, rivastigmine1 patch topical nightly Patient is full code except for ventilation. Present on Admission?: Yes (2) Diabetes mellitus: Glycemic control per pharmacy Present on Admission?: Yes (3) Hypertension: Continue aspirin 81 p.o. every morning, carvedilol 12.5 mg p.o. twice daily, lisinopril 20 mg p.o. every morning, continue digoxin 125 MCG's p.o. every morning Present on Admission?: Yes (4) Dyslipidemia: Continue atorvastatin 40 mg p.o. nightly Present on Admission?: Yes (5) Benign prostatic hyperplasia: Continue tamsulosin 0.4 mg p.o. every morning (6) Incontinence of urine: mentioned several times that she is refusing for the patient to have urinary catheter placed if he ever needs. Present on Admission?: Yes History of Present Illness Chief Complaint: Worsening Alzheimer dementia Primary Care Provider: Cornelia Higuera DO Patient is a 83 years old male with past medical history of severe progressive Alzheimer dementia, hyperlipidemia, coronary artery disease, diabetes mellitus type 2, benign prostatic hypertrophy, CKD stage III who was brought by his son and to the emergency room for evaluation of lower extremity weakness. This weakness has been ongoing for several weeks and it is progressive. Patient was able months ago to to participate in bathing and stand up but not anymore which became concerning to his . Patient is completely incontinent for stool and urine. His has aide that help her taking care of him at home. He is he is not willing to place patient anywhere and she wants him to stay with her at home. Patient is severely demented and due to it he is unable to answer to any question. He is alert but disoriented to time space and person. Patient is unable to follow directions or instructions. CT head there is no hemorrhaging mass-effect or evidence of acute territorial ischemia. Chest x-rays cardiomegaly with no acute cardiopulmonary abnormalities. WBCs 5.69, hemoglobin 14.4, hematocrit 41.2, platelets 141, PT 10.9, INR 1.1, potassium 4.2 BUN 21, creatinine 1.44, glucose 2 24Lactate 1.22 troponin -0 0.015 TSH 2.68. Urine all negative except to glucose. A decision was made to admit patient to PCU on telemetry for further evaluation of lower extremity weakness and worsening. Allergies Allergy/AdvReac Type Severity Reaction Status Date / Time atenolol Allergy Intermediate UNKNOWN Unverified 08/21/19 17:02 donepezil Allergy Intermediate GI UPSET Unverified 08/21/19 17:02 fenofibrate Allergy Intermediate UNKNOWN Unverified 08/21/19 17:02 indomethacin Allergy Intermediate UNKNOWN Unverified 08/21/19 17:02 latex Allergy Mild Skin Verified 08/21/19 17:02 Irritation adhesive Allergy Unknown red sore Unverified 08/21/19 17:02 skin from tape NSAIDS (Non-Steroidal Allergy Unknown QUESTIONABLE Verified 08/21/19 17:02 Anti-Inflamma ALLERGY TO INDOCIN hydroCHLOROthiazide TABS Allergy Mild Unknown Uncoded 08/21/19 17:02 Indocin CAPS Allergy Mild Unknown Uncoded 08/21/19 17:02 Niaspan TBCR Allergy Mild Unknown Uncoded 08/21/19 17:02 Tenormin TABS Allergy Mild Unknown Uncoded 08/21/19 17:02 Tricor TABS Allergy Mild Unknown Uncoded 08/21/19 17:02 Aricept TABS AdvReac Mild Unknown Uncoded 08/21/19 17:02 Home Medications Home Medications Medication Instructions Recorded Confirmed Type carvedilol 12.5 mg PO BID 09/23/18 08/21/19 History cholecalciferol (vitamin D3) 2,000 unit PO DAILY 09/23/18 08/21/19 History [Vitamin D3] cyanocobalamin (vitamin B-12) 100 mcg PO QAM 09/23/18 08/21/19 History [Vitamin B-12] docusate sodium [Colace] 300 mg PO HS 09/23/18 08/21/19 History lisinopril 20 mg PO QAM 09/23/18 08/21/19 History memantine 21 mg PO HS 09/23/18 08/21/19 History rivastigmine 1 patch TOPICAL HS 09/23/18 08/21/19 History tamsulosin 0.4 mg capsule 0.4 mg PO QAM #30 cap 05/19/19 08/21/19 History aspirin 81 mg PO QAM 08/08/19 08/21/19 History atorvastatin 40 mg PO HS 08/08/19 08/21/19 History digoxin 125 mcg PO QAM 08/08/19 08/21/19 History insulin glargine [Lantus Solostar 41 unit SQ HS 08/08/19 08/21/19 History U-100 Insulin] pantoprazole 40 mg PO QAM 08/08/19 08/21/19 History Past Med/Surg History Medical History Vitamin D deficiency Osteoarthritis Ischemic cardiomyopathy Incontinence Dyslipidemia Chronic kidney disease Arteriosclerotic coronary artery disease Arteriosclerosis of carotid artery Urinary retention CAD (coronary artery disease) Orthostasis Hypertension Alzheimer's dementia Anemia Aortocoronary bypass status Diabetes mellitus Diverticulosis of colon without hemorrhage Esophageal reflux Hx of prostatic malignancy Knee joint replacement status LBBB (left bundle branch block) History of colitis (Resolved) History of lower gastrointestinal bleeding (Resolved) Near syncope (Resolved) Past myocardial infarction (Resolved) History of prostate cancer treated with radiation seeds Surgical History S/P cholecystectomy (Resolved) H/O total knee replacement bilateral History of coronary artery stent placement 2 stents - [facility] Hx of CABG 2000 - [facility]; 4-vessel Family History Father , age 61 Coronary heart disease from [place] Congestive heart failure Myocardial infarction Mother , age 89 Congestive heart failure Social History Preferred Language: Spanish Communication Ability: Effective 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 Beliefs That Will Affect Care: Voodoo Voodoo Beliefs: Temple marital status details: - lives in [place] with ; 4 sons Current Living Situation: Family current 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 status: 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; 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; 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; 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 Feels Safe at Home: Yes Smoking Status: Never smoker Hx Alcohol Use: No Hx Substance Use: No Review of Systems Review of Systems: All systems reviewed & are unremarkable except as noted in HPI & below Physical Exam Constitutional: WD/WN, vitals as above well developed, + thin and + physical limitations Eyes: PERRL, conjunctivae normal, anicteric sclerae ENMT: external ear and nose normal, oropharynx normal Neck: trachea midline, no thyromegaly Respiratory: normal respiratory effort, lungs clear to auscultation Cardiovascular: RRR, no murmur, no edema Gastrointestinal (Abdomen): normal bowel sounds, soft, nontender, no hepatosplenomegaly Musculoskeletal: no cyanosis or clubbing, extremities motor strength 5/5 Skin: First-degree decubitus located at the lower back Neurologic: patellar DTR's 2+ bilat, sensation intact Psychiatric: A+Ox3, euthymic affect Genitourinary: no testicular masses, no penis abnormality Lymphatic: no cervical or axillary lymphadenopathy Results & Data Vital Signs (Past 12 Hours) Vital Signs Temp Pulse Pulse Resp BP BP Pulse Ox 08/21/19 19:07 52 L 17 182/73 H 08/21/19 19:00 55 L 20 182/73 H 98 08/21/19 16:58 52 L 17 162/70 H 97 08/21/19 16:26 96 08/21/19 15:38 36.8 C 68 18 92/52 L 93 Code Status & VTE Plan Code Status Full code with limitations no ventilation VTE Prophylaxis Plan VTE Prophylaxis will be ordered: Yes PG Care Time/CCT Total # of Minutes Spent Total Time Spent with Patient: Total time spent is greater than 50% in coordination of care (as documented) at patient's floor/unit and/or counseling patient: (1) Alzheimer's dementia Alzheimer's disease onset: unspecified onset Dementia behavioral disturbance: without behavioral disturbance Qualified Code(s): G30.9 - Alzheimer's disease, unspecified; F02.80 - Dementia in other diseases classified elsewhere without behavioral disturbance (2) Diabetes mellitus Diabetes mellitus type: type 2 Diabetes mellitus terminal carman insulin use: with terminal carman use Diabetes mellitus complication status: with unspecified complications Qualified Code(s): E11.8 - Type 2 diabetes mellitus with unspecified complications; Z79.4 - retirement (current) use of insulin (3) Hypertension Hypertension type: essential hypertension Qualified Code(s): I10 - Essential (primary) hypertension
--- NOTE | 2019-08-21 22:14 | Magnetic Resonance Report ---
MRI OF THE BRAIN WITHOUT CONTRAST CLINICAL HISTORY: advanced Alzheimer dementia INABILITY TO AMBULATE. INCREASED WEAKNESS. COMPARISON STUDY: 05/01/2014, head CT dated 08/21/2019 FINDINGS: Sagittal T1, axial diffusion, proton density and T2 weighted axial, coronal FLAIR, and axial T1-weigh aniceto images were acquired. No intra or extra-axial mass lesions are visualized Axial diffusion-weighted images reveal no evidence of acute or subacute infarction. There is slight progression in the moderate ventricular dilatation. Proton density T2-weighted and FLAIR images reveal scattered foci of increased T2 signal within the w emeka matter, likely on a small vessel basis. There is lacunar infarct in the periventricular left fro ntal white matter There are no abnormal flow voids. IMPRESSION: 1. No acute intracranial findings 2. No evidence of acute or subacute infarction 3. No evidence of intracranial mass in this noncontrast study 4. Slight progression in the moderate ventricular dilatation Electronically signed by: Ivan Dias M.D. 08/21/2019 10:13 PM
[2019-08-21] MEDS ORDERED: POLYETHYLENE (MIRALAX) 17 GM PACK PO PRN (22:28)
[2019-08-21] MEDS ORDERED: ONDANSETRON INJ 2 MG/ML 2 ML VIAL IV PRN (22:28)
[2019-08-21] MEDS ORDERED: ZOLPIDEM TARTRATE 5 MG TAB PO PRN (22:28)
[2019-08-21] MEDS ORDERED: MAGNESIUM HYDROXIDE SUSP 30 ML UDC PO PRN (22:28)
[2019-08-21] MEDS ORDERED: ALUMINUM/MAGNESIUM SUSP 30 ML UDC PO PRN (22:28)
[2019-08-21] MEDS ORDERED: ACETAMINOPHEN 325 MG TAB PO PRN (22:28)
[2019-08-21] MEDS ORDERED: CARBOHYDRATES FOR HYPOGLYCEMIA PO PRN (22:45)
[2019-08-21] MEDS ORDERED: GLUCAGON FOR INJ 1 MG VIAL IM PRN (22:45)
[2019-08-21] MEDS ORDERED: DEXTROSE 50% 50 ML SYRINGE IV PRN (22:45)
[2019-08-21] MEDS ORDERED: GLUCOSE 10 TABS/TUBE PO PRN (22:45)
[2019-08-21] MEDS ORDERED: GLUCOSE 40% GEL 15 GM TUBE PO PRN (22:45)
[2019-08-21] MEDS ORDERED: INSULIN GLARGINE SOLOSTAR 100 UNITS/ML 3 ML PEN SQ SCH (23:00)
[2019-08-21] MEDS ORDERED: INSULIN GLARGINE SOLOSTAR 100 UNITS/ML 3 ML PEN SC ONE (23:30)
[2019-08-22] MEDS: carvediloL 12.5 MG TAB PO SCH ×3 (00:11→20:45)
[2019-08-22] MEDS: ATORVASTATIN 40 MG TAB PO SCH ×2 (00:13→20:45)
[2019-08-22] MEDS: DOCUSATE SODIUM 100 MG CAP PO SCH ×3 (00:13→20:44)
[2019-08-22] MEDS: ENOXAPARIN INJ 40 MG/0.4 ML SYR SQ SCH ×2 (00:13→20:45)
[2019-08-22 07:19] LABS: Basophils # (auto) 0.03 K/uL (0-0.2); Basophils % (auto) 0.5 %; Eosinophils # (auto) 0.23 K/uL (0-0.5); Eosinophils % (auto) 3.9 %; Hematocrit (blood only) 38.4 % (42-52); Hemoglobin 13.4 g/dL (14.0-18.0); Immature Granulocytes # (auto) 0.02 K/uL (0.00-0.02); Immature Granulocytes % (auto) 0.3 %; Lymphocytes # (auto) 1.49 K/uL (1.2-3.4); Lymphocytes % (auto) 25.1 %; Mean Corpuscular Hemoglobin 29.4 pg (25-34); Mean Corpuscular Hgb Conc 34.9 g/dL (32-36); Mean Corpuscular Volume 84.2 fL (80-100); Mean Platelet Volume 10.5 fL (7.4-10.4); Monocytes # (auto) 0.57 K/uL (0.11-0.59); Monocytes % (auto) 9.6 %; Neutrophils # (auto) 3.59 K/uL (1.4-6.5); Neutrophils % (auto) 60.6 %; Platelet Count 129 K/uL (130-400); RDW Coefficient of Variation 13.2 % (11.5-14.5); RDW Standard Deviation 39.7 fL (36.4-46.3); Red Blood Count 4.56 M/uL (4.7-6.1); White Blood Count 5.93 K/uL (4.8-10.8)
[2019-08-22 07:46] LABS: Albumin Level 3.4 gm/dl (3.4-5.0); BUN Creatinine Ratio 16.5 (10-20); Calcium 8.8 mg/dl (8.5-10.1); Creatinine Clr Calc Pharmacy 37.9 ml/min; Est GFR (African American) 68.5; Est GFR (Non-African American) 59.1; Potassium 3.5 mmol/L (3.5-5.1)
[2019-08-22 07:48] LABS: Albumin Globulin Ratio 1.2 (0.9-2); Bilirubin,Total 0.8 mg/dl (0.2-1); Globulin 2.7 gm/dl (2.5-4.0); Total Protein 6.1 gm/dl (6.4-8.2)
[2019-08-22] MEDS: ASPIRIN 81 MG ECTAB PO SCH (08:51)
[2019-08-22] MEDS: TAMSULOSIN HCL 0.4 MG CAP PO SCH (08:51)
[2019-08-22] MEDS: lisinopriL 20 MG TAB PO SCH (08:52)
[2019-08-22] MEDS: PANTOprazole 40 MG TAB PO SCH (08:52)
[2019-08-22] MEDS: CYANOCOBALAMIN (VITAMIN B-12) 100 MCG TABLET PO SCH (08:52)
[2019-08-22] MEDS: CHOLECALCIFEROL 1,000 UNITS TAB PO SCH (08:52)
[2019-08-22] MEDS ORDERED: INFLUENZA VIRUS QUAD VACCINE 0.5 ML SYR IM ONE (09:00)
[2019-08-22] MEDS ORDERED: INFLUENZA ADMINISTRATION CHARGE ONE (09:00)
[2019-08-22] MEDS ORDERED: cefTRIAXone SODIUM 1,000 MG in DEXTROSE 5% 50 ML IV SCH (11:00)
--- NOTE | 2019-08-22 13:23 | Palliative Care Consultation ---
Date of Consultation August 22, 2019 Assessment & Plan (1) Goals of care, counseling/discussion: -83 year old male patient with PMH advanced dementia, OA, ischemic cardiomyopathy, CAD, htn, and others, presented to the hospital yesterday with acute onset weakness and inability to ambulate. Patient lives at home with his , Ekaterina, who takes excellent care of him. Patient's dementia is advanced, but has been able to maintain his mobility-- able to walk slowly with a walker. Does require help with all ADLs. In the last week and a half-to-two weeks, patient suddenly became increasingly weak. He is unsteady on his feet, knees unable to lock. hired a caregiver to come to the house for an hour in the morning to help with morning ADLs and breakfast. Patient continued to become weaker, so thought he should be checked out to be sure there is not a reversible cause. CT head and MRI brain both negative for anything significant or acute. All other workup unremarkable, and this decline is likely just progression of Alzheimer's dementia. Palliative care is consulted to discuss goals of care. -Met with patient and his , Ekaterina, in room 230-1. Patient is awake, oriented to person only. Only able to speak in one or two words. Pleasantly confused and eating lunch that his was feeding him. -Ekaterina states that she has done some of her own research on Alzheimer's dementia and knows that patient is in the "seventh stage," which she is correct about. We talked about some of the complications of advanced dementia that tend to arise: decreased strength, poor PO intake, UTIs, aspiration, pneumonia, etc. Ekaterina states that the goal really is just for comfort at this point. -Talked about CODE STATUS-- Ekaterina does not want CPR or intubation. Will change patient to DNR/DNI. -Discussed goals of care. Ekaterina would like to take patient home with home health and eventually transition to hospice. She has had experience with hospice in the past. I did state that I did not think there would be much recovery potential with PT/OT, and she agreed but stated she at least wanted to try. -POLST form discussed and completed as follows: DNR, comfort measures only, abx with comfort as the goal, no artificial hydration/nutrition. -Would continue patient's dementia and cardiac medications for now, could consider discontinuing Lipitor. No symptom management needs. -FAST score 7c. PPS 30%. -Please contact palliative care team with any further needs. (2) Weakness: (3) Advanced dementia: Supervising Physician Co-Signing Physician Notes Chart reviewed, patient seen and examined, no family at bedside. Collaborated with XUAN Mota PE: Patient awake and alert, confused HEENT: EOMI, hearing within normal limits Respirations: Clear breath sounds, unlabored CV: Regular rate Abdomen: Soft, nontender Neuro: Alert, confused Agree with above note, assessment and plan as per XUAN Mota. Will continue to follow as needed and assist family with medical decision making. History of Present Illness Reason for Consultation: Goals of care Requesting Physician: XUAN Bosch Attending Physician: Ezra Pollock MD History of Present Illness This 83 year old male patient with PMH advanced dementia, OA, ischemic cardiomyopathy, CAD, htn, and others, presented to the hospital yesterday with acute onset weakness and inability to ambulate. Patient lives at home with his , Ekaterina, who takes excellent care of him. Patient's dementia is advanced, but has been able to maintain his mobility-- able to walk slowly with a walker. Does require help with all ADLs. In the last week and a half-to-two weeks, patient suddenly became increasingly weak. He is unsteady on his feet, knees unable to lock. hired a caregiver to come to the house for an hour in the morning to help with morning ADLs and breakfast. Patient continued to become weaker, so thought he should be checked out to be sure there is not a reversible cause. CT head and MRI brain both negative for anything significant or acute. All other workup unremarkable, and this decline is likely just progression of Alzheimer's dementia. Palliative care is consulted to discuss goals of care. Thank you kindly for this consult. Palliative care team will follow as needed. Allergies Allergy/AdvReac Type Severity Reaction Status Date / Time atenolol Allergy Intermediate UNKNOWN Unverified 08/21/19 17:02 fenofibrate Allergy Intermediate UNKNOWN Unverified 08/21/19 17:02 indomethacin Allergy Intermediate UNKNOWN Unverified 08/21/19 17:02 latex Allergy Mild Skin Verified 08/21/19 17:02 Irritation adhesive Allergy Unknown red sore Unverified 08/21/19 17:02 skin from tape NSAIDS (Non-Steroidal Allergy Unknown QUESTIONABLE Verified 08/21/19 17:02 Anti-Inflamma ALLERGY TO INDOCIN hydrochlorothiazide Allergy Unknown Verified 08/21/19 22:36 niacin Allergy Unknown Verified 08/21/19 22:37 donepezil AdvReac Intermediate GI UPSET Unverified 08/21/19 22:36 Home Medications Home Medications Medication Instructions Recorded Confirmed Type carvedilol 12.5 mg PO BID 09/23/18 08/21/19 History cholecalciferol (vitamin D3) 2,000 unit PO DAILY 09/23/18 08/21/19 History [Vitamin D3] cyanocobalamin (vitamin B-12) 100 mcg PO QAM 09/23/18 08/21/19 History [Vitamin B-12] docusate sodium [Colace] 300 mg PO HS 09/23/18 08/21/19 History lisinopril 20 mg PO QAM 09/23/18 08/21/19 History memantine 21 mg PO HS 09/23/18 08/21/19 History rivastigmine 1 patch TOPICAL HS 09/23/18 08/21/19 History tamsulosin 0.4 mg capsule 0.4 mg PO QAM #30 cap 05/19/19 08/21/19 History aspirin 81 mg PO QAM 08/08/19 08/21/19 History atorvastatin 40 mg PO HS 08/08/19 08/21/19 History digoxin 125 mcg PO QAM 08/08/19 08/21/19 History insulin glargine [Lantus Solostar 41 unit SQ HS 08/08/19 08/21/19 History U-100 Insulin] pantoprazole 40 mg PO QAM 08/08/19 08/21/19 History Patient History Medical History Vitamin D deficiency Osteoarthritis Ischemic cardiomyopathy Incontinence Dyslipidemia Chronic kidney disease Arteriosclerotic coronary artery disease Arteriosclerosis of carotid artery Urinary retention CAD (coronary artery disease) Orthostasis Hypertension Alzheimer's dementia Anemia Aortocoronary bypass status Diabetes mellitus Diverticulosis of colon without hemorrhage Esophageal reflux Hx of prostatic malignancy Knee joint replacement status LBBB (left bundle branch block) History of colitis (Resolved) History of lower gastrointestinal bleeding (Resolved) Near syncope (Resolved) Past myocardial infarction (Resolved) History of prostate cancer treated with radiation seeds Surgical History S/P cholecystectomy (Resolved) H/O total knee replacement bilateral History of coronary artery stent placement 2 stents - [facility] Hx of CABG 2000 - [facility]; 4-vessel Family History Father , age 61 Coronary heart disease from [place] Congestive heart failure Myocardial infarction Mother , age 89 Congestive heart failure Social History Preferred Language: Setswana Communication Ability: Effective Manager Club Required: No Beliefs That Will Affect Care: Rastafari Rastafari Beliefs: Hinduism marital status details: - lives in [place] with ; 4 sons Current Living Situation: Spouse Current Living Situation Comment: home with current 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 status: 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; 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; 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; 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 Feels Safe at Home: Yes Smoking Status: Unknown if ever smoked Hx Alcohol Use: No Hx Substance Use: No Review of Systems Review of Systems: Unobtainable due to cognitive status Physical Exam Constitutional: well developed and well nourished; no acute distress ENMT: external ear and nose normal, oropharynx normal Neck: normal visual inspection Respiratory: normal respiratory effort, lungs clear to auscultation Cardiovascular: RRR, no murmur, no edema Gastrointestinal (Abdomen): Inspection/Auscultation: abdomen normal to inspection and normal bowel sounds; abdomen not distended Percussion/Palpation: abdomen soft Skin: normal turgor Neurologic: moves all extremities, awake and + confused Psychiatric: Orientation: alert and oriented to person; + not oriented to place and + not oriented to time Results & Data Vital Signs (Past 12 Hours) Vital Signs Temp Pulse Pulse Resp BP Pulse Ox 08/22/19 11:25 36.6 C 67 16 108/56 L 08/22/19 09:09 51 L 08/22/19 07:15 36.5 C 59 L 16 149/89 H 96 08/22/19 04:18 36.9 C 56 L 17 137/66 96 Time Spent Midlevel 80 minutes with >50% of the time spent at bedside with patient and family discussing condition, GOC, and POLST form.
[2019-08-22] MEDS: INSULIN ASPART 100 UNITS/ML 3 ML PEN SC SCH ×3 (14:32→20:51)
[2019-08-22] MEDS ORDERED: DIGOXIN 0.125 MG TAB PO SCH (16:00)
--- NOTE | 2019-08-22 16:08 | Hospitalist Progress Note ---
Date of Service August 22, 2019 Assessment & Plan (1) Alzheimer's dementia: Progressive severe Alzheimer dementia. Patient decline has been ongoing for several weeks per patient's son and narrative. Patient is not able to feed himself. He is incontinent for urine and stool. Patient said she has at home to help. Patient is not able anymore to participate in activities such as walking or bathing Patient is not able to follow any instructions or directions which would be diff icult for physical or 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 therapy to evaluate and assist CT scan of the head is negative, MRI brain showing no acute infarct though it does mention a lacunar infarct in the frontal white matter. Continue home medicine for Alzheimer's dementia: Vitamin D, vitamin B12, memantine 21 mg p.o. nightly, rivastigmine1 patch topical nightly Consulted neuro - patient sees Dr. Servin Consulted palliative - patient made DNR, POLST completed, would like to keep him at home as long as possible (2) Weakness: MRI lumbar back for leg weakness and loss of control of bowels and bladder (3) Diabetes mellitus: BSGs ac & hs, ss (4) Hypertension: Continue aspirin 81 p.o. every morning, carvedilol 12.5 mg p.o. twice daily, lisinopril 20 mg p.o. every morning, continue digoxin 125 MCG's p.o. every morning (5) Dyslipidemia: Continue atorvastatin 40 mg p.o. nightly (6) Benign prostatic hyperplasia: Continue tamsulosin 0.4 mg p.o. every morning (7) Incontinence of urine: mentioned several times that she is refusing for the patient to have urinary catheter placed if he ever needs. (8) DVT prophylaxis: enoxaparin SCDs Subjective Mr. Astudillo was obtunded when I saw him this morning, opening eyes briefly to tactile stimulation but then quickly closing eyes again. His was bedside and we discussed her concerns and also benefits to getting palliative involved. Patient was unable to give a review of systems Physical Exam Physical Exam: General: no distress Eyes: normal inspection, PERLL Respiratory: chest non tender, clear to auscultation, normal breath sounds, no respiratory distress, no accessory muscle use Cardiac: regular rate and rhythm, no rub or gallop, no murmur, no edema, no jvd GI/: active bowel sounds, no abd pain or tenderness, soft, non distended Extremities:non tender Neuro/Psych: obtunded Skin: normal color, dry Results & Data Vital Signs (Past 12 Hours) Vital Signs Temp Pulse Pulse Resp BP Pulse Ox 08/22/19 15:21 36.4 C L 55 L 20 111/66 97 08/22/19 11:25 36.6 C 67 16 108/56 L 08/22/19 09:09 51 L 08/22/19 07:15 36.5 C 59 L 16 149/89 H 96 08/22/19 04:18 36.9 C 56 L 17 137/66 96 PG Care Time/CCT Total # of Minutes Spent Total Time Spent with Patient: Total time spent is greater than 50% in coordination of care (as documented) at patient's floor/unit and/or counseling patient: (1) Alzheimer's dementia Alzheimer's disease onset: unspecified onset Dementia behavioral disturbance: without behavioral disturbance Qualified Code(s): G30.9 - Alzheimer's disease, unspecified; F02.80 - Dementia in other diseases classified elsewhere without behavioral disturbance (2) Diabetes mellitus Diabetes mellitus type: type 2 Diabetes mellitus 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
[2019-08-22] MEDS: RIVASTIGMINE TARTRATE 1.5 MG CAP PO SCH (17:11)
[2019-08-22] MEDS: MEMANTINE HCL 5 MG TAB PO SCH (20:45)
--- NOTE | 2019-08-22 20:55 | Magnetic Resonance Report ---
LUMBAR SPINE MRI HISTORY: lower extremity weakness TECHNIQUE: Multiplanar multisequence MRI of the lumbar spine was performed without the use of contras t. COMPARISON: Lumbar spine MRI 10/25/2006. FINDINGS: For the purpose of the report the L5-S1 disc space will be located on axial image 4 of 14 o n series 9. Bilateral L5 spondylolysis with associated 7 mm of anterolisthesis. The remaining vertebral bodies ar e well aligned. Moderate to severe facet degenerative changes at L4-5 and L5-S1. Mild facet degenerat milo changes throughout the remaining lumbar spine. Paraspinal soft tissues are unremarkable. A few lewis bcentimeter Tarlov cysts are seen at S2. Mild nonspecific presacral edema. No fractures within the steffany mbar spine. Mild edema adjacent to the lower facets likely due to the degenerative change. The conus terminates at the L1-L2 disc space level. Moderate disc space narrowing at L3-L4, unchanged. Mild dis c space narrowing at L4-5 and L5-S1 is also unchanged. L1-L2: Broad-based posterior disc bulge without significant central canal or neural foraminal narrowi ng. L2-L3: Broad-based posterior disc bulge without significant central canal narrowing. There is mild bi lateral neural foraminal narrowing. L3-L4: Broad-based posterior disc bulge with a focal central disc protrusion measuring 8 x 5 mm. This has slightly decreased in size compared to the prior study. No significant central canal narrowing. There is mild to moderate right and mild left neural foraminal narrowing. L4-L5: Small broad-based posterior disc bulge without significant central canal narrowing. There is s evere right and moderate left neural foraminal narrowing, unchanged. L5-S1: No significant central canal narrowing. Broad-based posterior disc bulge with the anterolisthe sis and facet hypertrophy results in severe bilateral neural foraminal narrowing, unchanged. IMPRESSION: 1. No fractures within the lumbar spine. 2. Bilateral L5 spondylolysis with associated grade 2 anterolisthesis. This is not significantly zuniga ged compared to the prior and study results in severe bilateral neural foraminal narrowing at L5-S1. 3. Slight decrease in size in the L3-L4 focal central disc protrusion.. 4. Additional stable findings as described above. Electronically signed by: Alton Duval M.D. 08/22/2019 8:54 PM
[2019-08-23 06:27] LABS: Albumin Level 3.5 gm/dl (3.4-5.0); BUN Creatinine Ratio 14.1 (10-20); Creatinine Clr Calc Pharmacy 33.8 ml/min; Est GFR (African American) 59.6; Est GFR (Non-African American) 51.4; Potassium 3.8 mmol/L (3.5-5.1)
[2019-08-23 06:29] LABS: Albumin Globulin Ratio 1.1 (0.9-2); Bilirubin,Total 1.1 mg/dl (0.2-1); Globulin 3.1 gm/dl (2.5-4.0); Total Protein 6.6 gm/dl (6.4-8.2)
[2019-08-23] MEDS: CHOLECALCIFEROL 1,000 UNITS TAB PO SCH (08:01)
[2019-08-23] MEDS: carvediloL 12.5 MG TAB PO SCH (08:01)
[2019-08-23] MEDS: ASPIRIN 81 MG ECTAB PO SCH (08:01)
[2019-08-23] MEDS: TAMSULOSIN HCL 0.4 MG CAP PO SCH (08:01)
[2019-08-23] MEDS: CYANOCOBALAMIN (VITAMIN B-12) 100 MCG TABLET PO SCH (08:01)
[2019-08-23] MEDS: MEMANTINE HCL 5 MG TAB PO SCH (08:02)
[2019-08-23] MEDS: PANTOprazole 40 MG TAB PO SCH (08:02)
[2019-08-23] MEDS: lisinopriL 20 MG TAB PO SCH (08:02)
[2019-08-23] MEDS: RIVASTIGMINE TARTRATE 1.5 MG CAP PO SCH (08:03)
[2019-08-23] MEDS: INSULIN ASPART 100 UNITS/ML 3 ML PEN SC SCH ×2 (08:06→12:04)
--- NOTE | 2019-08-23 09:01 | Neurology Consultation ---
Date of Consultation August 23, 2019 Assessment & Plan (1) Advanced dementia: Advanced Alzheimer's dementia characterized by persistent, progressive decline in memory, speech and language, and overall cognitive functioning for at least the past 5 years. He has associated motor and gait dysfunction as well which is probably related to both the underlying degenerative cortical dementia but also further affected by progressive hydrocephalus ex vacuo and chronic subcortical cerebral vascular disease. His underlying neuro degenerative disease is progressive and he is on both a cholinesterase inhibitor and memantine. He has had some difficulty tolerating dose escalation of cholineste rase inhibitors previously and I would not recommend making any changes in these medications at this time. I agree with palliative care involvement. There is no role for ventricular shunting in his case. Please contact me if I can be of further assistance. History of Present Illness Reason for Consultation: Progressive dementia Requesting Physician: XUAN Pope Attending Physician: Ezra Pollock MD History of Present Illness The patient is an 83-year old male with a history of progressive, advanced, Alzheimer's dementia. He has been following with me in the outpatient neurology clinic periodically for the past few years for this condition which was first noted about 5 years ago. His condition continues to decline. He is prescribed both Exelon and memantine for his dementia. He presented to the hospital with progressive weakness, inability to stand over the past few weeks with associated incontinence. His advanced dementia renders him an extremely poor historian. Both MRI of the brain and lumbar spine have been completed for further assessment of his progressive dementia and ambulatory dysfunction. No acute pathology has been identified. His functional decline is felt to be largely related to his severe progressive dementia. Palliative care has been consulted and there are plans to discharge the patient to home with home health and e ventually transition to hospice. Currently, I observed the patient while the nurses were assisting with his breakfast and morning medications. He is pleasant and cooperative although disoriented and is not really able to provide much in the way of history or symptoms. His nurse does not report any significant issues with behavior either this morning or reported to her overnight. Additional details as below. Allergies Allergy/AdvReac Type Severity Reaction Status Date / Time atenolol Allergy Intermediate UNKNOWN Unverified 08/21/19 17:02 fenofibrate Allergy Intermediate UNKNOWN Unverified 08/21/19 17:02 indomethacin Allergy Intermediate UNKNOWN Unverified 08/21/19 17:02 latex Allergy Mild Skin Verified 08/21/19 17:02 Irritation adhesive Allergy Unknown red sore Unverified 08/21/19 17:02 skin from tape NSAIDS (Non-Steroidal Allergy Unknown QUESTIONABLE Verified 08/21/19 17:02 Anti-Inflamma ALLERGY TO INDOCIN hydrochlorothiazide Allergy Unknown Verified 08/21/19 22:36 niacin Allergy Unknown Verified 08/21/19 22:37 donepezil AdvReac Intermediate GI UPSET Unverified 08/21/19 22:36 Home Medications Home Medications Medication Instructions Recorded Confirmed Type carvedilol 12.5 mg PO BID 09/23/18 08/21/19 History cholecalciferol (vitamin D3) 2,000 unit PO DAILY 09/23/18 08/21/19 History [Vitamin D3] cyanocobalamin (vitamin B-12) 100 mcg PO QAM 09/23/18 08/21/19 History [Vitamin B-12] docusate sodium [Colace] 300 mg PO HS 09/23/18 08/21/19 History lisinopril 20 mg PO QAM 09/23/18 08/21/19 History memantine 21 mg PO HS 09/23/18 08/21/19 History rivastigmine 1 patch TOPICAL HS 09/23/18 08/21/19 History tamsulosin 0.4 mg capsule 0.4 mg PO QAM #30 cap 05/19/19 08/21/19 History aspirin 81 mg PO QAM 08/08/19 08/21/19 History atorvastatin 40 mg PO HS 08/08/19 08/21/19 History digoxin 125 mcg PO QAM 08/08/19 08/21/19 History insulin glargine [Lantus Solostar 41 unit SQ HS 08/08/19 08/21/19 History U-100 Insulin] pantoprazole 40 mg PO QAM 08/08/19 08/21/19 History Patient History Medical History Vitamin D deficiency Osteoarthritis Ischemic cardiomyopathy Incontinence Dyslipidemia Chronic kidney disease Arteriosclerotic coronary artery disease Arteriosclerosis of carotid artery Urinary retention CAD (coronary artery disease) Orthostasis Hypertension Alzheimer's dementia Anemia Aortocoronary bypass status Diabetes mellitus Diverticulosis of colon without hemorrhage Esophageal reflux Hx of prostatic malignancy Knee joint replacement status LBBB (left bundle branch block) History of colitis (Resolved) History of lower gastrointestinal bleeding (Resolved) Near syncope (Resolved) Past myocardial infarction (Resolved) History of prostate cancer treated with radiation seeds Surgical History S/P cholecystectomy (Resolved) H/O total knee replacement bilateral History of coronary artery stent placement 2 stents - [facility] Hx of CABG 2000 - [facility]; 4-vessel Family History Father , age 61 Coronary heart disease from [place] Congestive heart failure Myocardial infarction Mother , age 89 Congestive heart failure Social History Preferred Language: Nigerian Communication Ability: Effective 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: No Beliefs That Will Affect Care: Mandaeism Mandaeism Beliefs: Zoroastrianism marital status details: - lives in [place] with ; 4 sons Current Living Situation: Spouse Current Living Situation Comment: home with current 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 status: 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 Physical Exam Physical Exam: The patient is a well-developed, well-nourished elderly male. He is alert and oriented to person only. Recent and remote memory impaired. Attention and concentration are modestly impaired. The patient has difficulty with both object naming and repetition. He is somewhat abulic. He does not follow commands well. Fund of knowledge seems poor although cannot be reliably assessed. Visual coe grossly full to threat. Acuity cannot be assessed. Pupils equal round reactive to light and accommodation. There is no ptosis, nystagmus, or ophthalmoplegia. Eye movements grossly normal to observation. Facial sensation intact. There is no facial droop or weakness. Hearing intact. Palate elevates to midline. Shoulder shrug intact. Tongue protrudes to midline. Sensation grossly intact for all 4 limbs. Deep tendon reflexes intact and symmetrical for the arms and legs. Plantar responses equivocal to upgoing bilaterally. The patient does not cooperate for testing of dysmetria or dysdiadochokinesia. Patient does not cooperate adequately for direct ophthal moscopic examination. Carotid pulses normal bilaterally, no bruits to auscultation. Gait and station cannot be tested. Muscle strength cannot be adequately tested although the patient appears to move all 4 limbs in a symmetric fashion by observation. No gross hemiparesis or paraparesis. Muscle tone normal throughout. No atrophy. No abnormal movements observed. Results & Data Vital Signs (Past 12 Hours) Vital Signs Temp Pulse Resp BP BP Pulse Ox 08/23/19 07:44 36.6 C 61 22 183/79 H 97 08/23/19 04:35 36.7 C 60 16 189/83 H 97 08/22/19 23:45 36.8 C 55 L 20 140/63 95 Laboratory Results WBC 5.93, hemoglobin 13.4, hematocrit 38.4, platelet count 129, sodium 138, potassium 3.8, BUN 18, creatinine 1.28, glucose 135, TSH 2.68 Diagnostic Findings MRI of the brain completed August 21, 2019 is negative for hemorrhage or acute or subacute stroke. There is generalized atrophy with an element of hydrocephalus ex vacuo as well as chronic small vessel ischemic disease and an old lacunar infarct within the left frontal white matter. I reviewed the images as well as the radiologist interpretation of this test. An MRI of the lumbar spine completed August 22, 2019 is negative for fractures. There is grade 2 anterolisthesis at L5 resulting in severe bilateral neuroforaminal narrowing at L5-S1, not significantly changed compared with a prior lumbar MRI done in 2005. There is a focal central disc protrusion at L3-4 which is slightly decreased in size compared with the prior MRI. I reviewed the images as well as the radiologist interpretation of this test. An electrocardiogram reveals sinus bradycardia with first-degree AV block, 54 bpm.
[2019-08-23 10:44] VITALS: PULSE 54; TEMP 98.2; O2SAT 96
--- NOTE | 2019-08-23 11:42 | Discharge Summary ---
Date of Service August 23, 2019 Admission HPI Per Admitting Provider Patient is a 83 years old male with past medical history of severe progressive Alzheimer dementia, hyperlipidemia, coronary artery disease, diabetes mellitus type 2, benign prostatic hypertrophy, CKD stage III who was brought by his son and to the emergency room for evaluation of lower extremity weakness. This weakness has been ongoing for several weeks and it is progressive. Patient was able months ago to to participate in bathing and stand up but not anymore which became concerning to his . Patient is completely incontinent for stool and urine. His has aide that help her taking care of him at home. He is he is not willing to place patient anywhere and she wants him to stay with her at home. Patient is severely demented and due to it he is unable to answer to any question. He is alert but disoriented to time space and person. Patient is unable to follow directions or instructions. CT head there is no hemorrhaging mass-effect or evidence of acute territorial ischemia. Chest x-rays cardiomegaly with no acute cardiopulmonary abnormalities. WBCs 5.69, hemoglobin 14.4, hematocrit 41.2, platelets 141, PT 10.9, INR 1.1, potassium 4.2 BUN 21, creatinine 1.44, glucose 2 24Lactate 1.22 troponin -0 0.015 TSH 2.68. Urine all negative except to glucose. A decision was made to admit patient to PCU on telemetry for further evaluation of lower extremity weakness and worsening. Principal Diagnosis Alzheimer's dementia Discharge Exam Constitutional WD/WN, vitals as above Respiratory normal respiratory effort, lungs clear to auscultation Cardiovascular RRR, no murmur, no edema Gastrointestinal (Abdomen) Inspection/Auscultation: abdomen normal to inspection and normal bowel sounds; abdomen not distended Percussion/Palpation: abdomen soft; abdomen nontender Musculoskeletal generalized weakness Skin no rashes, warm and dry Neurologic moves all extremities and awake Psychiatric Orientation: alert; + not oriented x 3 Discharge Data Allergies Allergy/AdvReac Type Severity Reaction Status Date / Time atenolol Allergy Intermediate UNKNOWN Unverified 08/21/19 17:02 fenofibrate Allergy Intermediate UNKNOWN Unverified 08/21/19 17:02 indomethacin Allergy Intermediate UNKNOWN Unverified 08/21/19 17:02 latex Allergy Mild Skin Verified 08/21/19 17:02 Irritation adhesive Allergy Unknown red sore Unverified 08/21/19 17:02 skin from tape NSAIDS (Non-Steroidal Allergy Unknown QUESTIONABLE Verified 08/21/19 17:02 Anti-Inflamma ALLERGY TO INDOCIN hydrochlorothiazide Allergy Unknown Verified 08/21/19 22:36 niacin Allergy Unknown Verified 08/21/19 22:37 donepezil AdvReac Intermediate GI UPSET Unverified 08/21/19 22:36 Consultations 08/21/19 18:08 ED Decision to Admit Stat 08/22/19 10:42 Consult Palliative Care Routine 08/22/19 10:43 Consult Neurology Routine Ordered Studies 08/21/19 16:16 CT head/brain wo con Stat 08/21/19 20:54 MR brain wo con Stat 08/22/19 14:16 MR lumbar spine wo con Routine Hospital Course (1) Alzheimer's dementia: Progressive severe Alzheimer dementia. Patient decline has been ongoing for several weeks per patient's son and narrative. CT scan of the head is negative, MRI brain showing no acute infarct though it does mention a lacunar infarct in the frontal white matter and increased size of ventricles, MRI lumbar spine with chronic changes BC ngtd, CXR wnl, U/A unremarkeable Continue home medicine for Alzheimer's dementia: Vitamin D, vitamin B12, memantine 21 mg p.o. nightly, rivastigmine1 patch topical nightly Consulted neuro - patient sees Dr. Servin. Per Dr. Servin, patient's symptoms most likely due to progressing dementia as well as progressive hydrocephalus and chronic subcortical cerebral vascular disease. Consulted palliative - patient made DNR, POLST completed, would like to keep him at home as long as possible. They do not want to start hospice yet but do want treatments to focus on comfort. (2) Weakness: As above (3) Diabetes mellitus: BSGs ac & hs, ss (4) Hypertension: Continue aspirin 81 p.o. every morning, carvedilol 12.5 mg p.o. twice daily, lisinopril 20 mg p.o. every morning, continue digoxin 125 MCG's p.o. every morning (5) Dyslipidemia: Continue atorvastatin 40 mg p.o. nightly (6) Benign prostatic hyperplasia: Continue tamsulosin 0.4 mg p.o. every morning (7) Incontinence of urine: mentioned several times that she is refusing for the patient to have urinary catheter placed if he ever needs. (8) DVT prophylaxis: enoxaparin SCDs Dispo: Home with home health. Discussed discharge with and son. They understand that his symptoms are likely progressive chronic issues rather than any acute problem. Patient has not had any issues with fecal incontinence since arriving at the hospital and has not had a bm in that time so will hold off on stool studies. I did discuss with Mrs. Astudillo that if he were to start having frequent stools she should speak with his pcp. Mrs. Astudillo and her son feel comfortable with their ability to care for Mr. Astudillo at home and do not want to look into any kind of placement at this time. Their goal is to keep him at home as long as possible Total Time Total Time Spent Total Time Spent (In Minutes): greater than 30 minutes Discharge Plan Discharge Items Patient Disposition: Home - Home Health Services Reason For Visit: WEAKNESS OF THE LOW EXTREMITY BILATERALLY Discharge Diagnosis: Weakness, advanced Alzheimer's Activity: Resume your previous activity Non-emergency contact: Primary Care Provider Call non-emergency contact if: you have any medication questions and you have a fever Follow-up/Referrals: Cornelia Higuera, [Primary Care Provider] - Diet: Carb Consistent or DM2 and Heart Healthy Addtl Attending Provider Instructions: Alzheimer's dementia and weakness: Mr. Astudillo's weakness is likely largely due to progression of Alzheimer's Dementia. His MRI of his brain did not show any new acute findings though it did show some progression of chronic findings that could be contributing to weakness. MRI of the lumbar spine also showed chronic findings without acute changes. He does have chronic severe narrowing of the opening in his spinal column that his nerves pass through which was seen previously on other images. This may also be a contributor to his leg weakness as well. Pending Studies at Discharge: No Stand-Alone Forms: [facility] Medications and DC Order Prescriptions: Continued tamsulosin 0.4 mg capsule 0.4 mg PO QAM Qty: 30 RF: 0 carvedilol 12.5 mg tablet 12.5 mg PO BID RF: 0 cyanocobalamin (vitamin B-12) [Vitamin B-12] 100 mcg Tablet 100 mcg PO QAM RF: 0 docusate sodium [Colace] 100 mg Capsule 300 mg PO HS RF: 0 lisinopril 40 mg tablet 20 mg PO QAM RF: 0 cholecalciferol (vitamin D3) [Vitamin D3] 2,000 unit Capsule 2,000 unit PO DAILY RF: 0 rivastigmine 13.3 mg/24 hour patch 24 hour 1 patch Topical HS RF: 0 memantine 21 mg capsule,sprinkle,ER 24hr 21 mg PO HS RF: 0 aspirin 81 mg Tablet,Delayed Release (Dr/Ec) 81 mg PO QAM RF: 0 atorvastatin 40 mg tablet 40 mg PO HS RF: 0 pantoprazole 40 mg tablet,delayed release (DR/EC) 40 mg PO QAM RF: 0 digoxin 125 mcg tablet 125 mcg PO QAM RF: 0 Lantus Solostar U-100 Insulin 100 unit/mL (3 mL) insulin pen 41 unit SQ HS RF: 0 Discharge Orders: Discharge Order (Routine); Ordered 08/23/19 Ordered By: Malena Tejada Admission Data Admit Date/Time: 08/21/19 21:07 Attending Provider: Ezra Pollock Admit Provider: Kiet Sargent Primary Care Provider: Cornelia Higuera Other Providers: Ezra Pollock ; Shirley Cardona ; Adan Servin
[2019-08-23 12:21] VITALS: BP 189/83
== END 2019-08-23 12:58 | disposition home health service (06) | DRG 57 ==
LOC: ED 15:25 → 2S 21:07 → SUATTDRO 21:07 → 2S 21:51